=== PATIENT | female | born 1955 | race Caucasian/White ===

== ENCOUNTER 2020-09-05 15:57 | Outpatient (CLI) | payer MEDICARE, OTHER, SELFPAY ==
--- NOTE | ~2020-09-05 | US_ITS ---
US venous doppler LE RT DATE: 09/05/2020 16:28 INDICATION: Right lower leg pain TECHNIQUE: Real-time and color flow imaging and Doppler analysis of the veins of the right lower extr emity COMPARISON: 04/05 2011 mm tubular examination of the lower extremities FINDINGS: There is spontaneous and phasic flow and normal augmentation and color flow signal and norm al compression of the veins of the right lower extremity. Greater saphenous vein is patent. IMPRESSION: No evidence of deep venous thrombosis of right lower extremity Reviewed, dictated and finalized at [facility]. Reviewed, dictated and finalized at location [facility]. 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
== END 2020-09-05 15:58 | disposition home or self-care (01) ==
LOC: ANHIMG 16:04
PROVIDERS: PCP Physician Assistant; Visit Provider Family Medicine
DX: M79.661 Pain in right lower leg (principal)
CPT/HCPCS: 93971

== ENCOUNTER 2020-10-01 12:44 | Outpatient (CLI) | payer MEDICARE, OTHER, SELFPAY ==
--- NOTE | ~2020-10-01 | US_ITS ---
US renal BI 10/01/2020 13:28 Procedure: Realtime transabdominal ultrasound of the kidneys and bladder. Indication: Abnormality seen on the kidneys on recent outside MRI examination. Comparison: No prior studies for comparison. Findings: There is an irregular shaped hypoechoic mass measuring 2.3 x 2 x 1.8 cm and the left kidney . No hydronephrosis or renal stones. Right renal echotexture is normal without focal mass. The right kidney measures 8.5 cm and left kidney measures 11.5 cm. Bladder within normal limits. Impression: 1: Irregular shaped hypoechoic mass of the left kidney measuring 2.3 cm maximum dimension. This canno t be definitively characterized as a simple cyst. Recommend correlation with contrast-enhanced CT or MRI. Reviewed, dictated and finalized at location [facility]. Impression: 1: Irregular shaped hypoechoic mass of the left kidney measuring 2.3 cm maximum dimension. This cannot be definitively characterized as a simple cyst. Recomme nd correlation with contrast-enhanced CT or MRI.
== END 2020-10-01 12:45 | disposition home or self-care (01) ==
LOC: ANHIMG 12:48
PROVIDERS: PCP Physician Assistant; Visit Provider Family Medicine
DX: N28.1 Cyst of kidney, acquired (principal)
CPT/HCPCS: 76775

== ENCOUNTER 2020-10-30 12:43 | Inpatient (IN) | payer MEDICARE, OTHER, SELFPAY ==
--- NOTE | ~2020-10-30 | US_ITS ---
EXAMINATION: US venous doppler LE RT DATE: 10/30/2020 14:54 INDICATION: Right lower limb pain TECHNIQUE: Grayscale ultrasound images without and with compression and Doppler ultrasound images of the right lower extremity veins were obtained. COMPARISON: None. FINDINGS: The visualized portions of right common femoral vein, profunda (deep) femoral vein, femoral vein, pop liteal vein, peroneal trunk, posterior tibial veins, peroneal veins, gastrocnemius vein and greater s aphenous vein outflow are patent. IMPRESSION: 1. No deep venous thrombosis in the right lower limb. Reviewed, dictated and finalized at location A.
[2020-10-30 12:53] VITALS: BP 138/93; PULSE 91; RESP 18; TEMP 36.3; O2SAT 100
[2020-10-30 13:13] LABS: Basophils Absolute Auto 0.1 K/mm3 (0.0-0.1); Basophils Percent Auto 0.5 % (0.2-1.2); Eosinophils Absolute Auto 0.1 K/mm3 (0-0.3); Eosinophils Percent Auto 1.2 % (0-4.4); Hematocrit 47.7 % (37.0-47.0); Hemoglobin 16.2 g/dL (12.0-15.0); Immature Granulocyte Absolute 0.07 K/mm3 (0.00-0.031); Immature Granulocyte Percent A 0.6 % (0-0.5); Lymphocytes Absolute Auto 1.29 K/mm3 (0.9-3.2); Lymphocytes Percent Auto 11.8 % (18.3-44.2); Mean Corpuscular Hemoglobin 31.2 pg (26-34); Mean Corpuscular Volume 91.9 fl (80-100); Mean Platelet Volume 10.2 fl (7.4-10.4); Monocytes Percent Auto 9.1 % (2.6-8.5); Neutrophils Absolute Auto 8.4 K/mm3 (1.3-6.7); Neutrophils Percent Auto 76.8 % (45.5-73.1); Platelet Count Result 181 k/mm3 (150-375); Red Blood Count 5.19 M/mm3 (4.2-5.4); Red Cell Distribution Width 13.3 % (11.5-14.5); White Blood Count 10.9 K/mm3 (4.5-10.0)
[2020-10-30 13:34] LABS: Anion Gap 12 mmol/L (8-16); Blood Urea Nitrogen 28 mg/dL (7-17); Calcium 9.5 mg/dL (8.4-10.2); Carbon Dioxide 25 mmol/L (22-30); Chloride 98 mmol/L (98-107); Estimated CRCL calculation 53 ml/min; Estimated Glomerular Filt Rate 55; Glucose 96 mg/dL (65-105); Potassium 3.6 mmol/L (3.4-5.0); Sodium 135 mmol/L (137-145)
--- NOTE | 2020-10-30 14:15 | PC.NURSE ---
Worsening R inner calf cellulitis over last month, denies hx blood clots, had US last month for same (unremarkable). Denies trauma to RLE. BLE appear equal in size, redness and warmth to inner calf, white crusted area (currently no drainage)
--- NOTE | 2020-10-30 14:15 | ED.GENADULT ---
HPI - General Adult General Chief complaint: Skin/Abscess/Foreign Body Stated complaint: right leg cellulitis Time Seen by Provider: 10/30/20 14:01 Source: RN notes reviewed History of Present Illness HPI narrative: Patient presents emergency room from home for right leg cellulitis. Patient states she has been having recurrent cellulitis in her right lower extremity over the past several months has been on 3 courses of antibiotics with the most recent antibiotic being Levaquin. Patient states she has 1 dose left she states that the area has had increased redness over the past 2 days and is now all the way around her lower leg she denies any known trauma or injury she denies any fevers or chills chest pain shortness of breath or any other symptoms patient does have lupus and is on chronic steroids Related Data Home Medications Medication Instructions Recorded Confirmed amitriptyline 25 mg tablet 50 mg PO DAILY tablet 05/07/20 10/23/20 pregabalin 150 mg capsule 150 mg PO BID 05/07/20 10/23/20 cholecalciferol (vitamin D3) 125 125 mcg PO DAILY 09/05/20 10/23/20 mcg (5,000 unit) tablet Allergies Allergy/AdvReac Type Severity Reaction Status Date / Time cephalexin Allergy Unknown Vomiting Verified 10/30/20 12:56 metronidazole Allergy Unknown Unknown Verified 10/30/20 12:56 Penicillins Allergy Unknown Unknown Verified 10/30/20 12:56 Sulfa (Sulfonamide Allergy Unknown Unknown Verified 10/30/20 12:56 Antibiotics) dicloxacillin AdvReac Intermediate SOB Verified 10/30/20 12:56 sulfamethoxazole AdvReac Intermediate SOB Verified 10/30/20 12:56 trimethoprim AdvReac Intermediate SOB Verified 10/30/20 12:56 Review of Systems Review of Systems: Narrative: Gen.: Denies fevers or chills ENT: Denies congestion Respiratory: Denies shortness of breath or cough CV: Denies chest pain or palpitations GI: Denies abdominal pain nausea, emesis or diarrhea Musculoskeletal: Denies back pain or muscle pain Neuro: Denies numbness, tingling, weakness or focal weakness Skin: See HPI Except as documented, all other systems reviewed and negative PMFSH Past Medical History Medical History Cervical radiculopathy Hypertension Lumbar spinal stenosis Lupus Panniculitis with secondary chronic pain Right anterior knee pain (~12/2018) Vitamin D deficiency Surgical History Surgical History History of carpal tunnel release History of fusion of cervical spine (~2013) History of lumpectomy left breast History of rotator cuff surgery left side Family History Family History Father Hypertension Mother Family history of Parkinson's disease Family history of genetic disorder Social History Social History Smoking status: Never smoker Second hand tobacco smoke exposure: No Alcohol intake: never Substance use: never Substance use type: does not use Gender identity (if verbalized by the patient): Female Exam Narrative: Exam Narrative: APPEARANCE: No acute distress, nontoxic, resting in bed EYES: EOMI HEENT: Normocephalic, atraumatic, OMM RESPIRATORY: No respiratory distress Clear to auscultation bilaterally with no rhonchi wheezing or rales. CARDIOVASCULAR: Regular rate and rhythm without murmurs rubs or gallops. ABDOMINAL: Soft, nontender, nondistended, no rebound or guarding MUSCULOSKELETAl: Moves all extremities. No clubbing, cyanosis or edema. NEURO: Awake and alert. Following commands, speech normal, no focal deficits SKIN:: Warm, dry. Right lower extremity has circumferential erythema proximal to the ankle and up through the mid leg with some overlying crusting no drainage present no fluctuance no extension over the ankle or knee dorsalis pedis pulse present by Doppler ultrasound in room PSYCHIATRIC: N
[2020-10-30 14:45] LABS: Lactic Acid Reflex 1.4 mmol/L (0.7-2.1)
[2020-10-30 14:49] LABS: INR 0.9; Prothrombin Time 12.9 Seconds (11.1-14.7)
[2020-10-30 14:50] LABS: Partial Thromboplastin Time 26.4 SECONDS (22.3-36.8)
[2020-10-30] MEDS: ONDANSETRON INJ 4 MG/2 ML VIAL IV PUSH (15:33)
[2020-10-30 16:15] VITALS: BP 146/89; PULSE 96; RESP 20; O2SAT 100
[2020-10-30 16:40] VITALS: BMI 35.4
[2020-10-30 16:45] VITALS: BP 144/88; PULSE 89; RESP 20; TEMP 36.9; O2SAT 96
--- NOTE | 2020-10-30 17:15 | ADMGEN ---
This patient, January Calvin, was admitted to [facility] Surg Room 314-01 at 1640. Patient/family oriented to hospital policies and general routines including ID bracelet, bed and alarms, visiting hours, pain management, procedures, bathroom and other care routines, personal items, smoking policy, room service/diet, and visiting hours. Information on how to activate the Rapid Response Team has been discussed. Patient/Family are encouraged to report perceived risks to care and to ask questions if they do not understand what they are told or what they should do.
[2020-10-30] MEDS: METOCLOPRAMIDE HCL INJ 10 MG/2 ML VIAL IV PUSH (17:35)
[2020-10-30] MEDS: HYDROmorphone HCL INJ (*CRX) 1 MG/ML SYR 0.5 MG IV PUSH (17:37)
--- NOTE | 2020-10-30 19:20 | PM.IMHP ---
H&P: HPI History of Present Illness Date/Time: 10/30/20 19:20 patient who has a past history of having cellulitis her right leg. The patient also has lupus and is on prednisone. The patient came to the emergency room today to review her cellulitis to the right lower extremity. The patient stated that she has had 3 antibiotics outpatient. She said that she has had 2 rounds of Levaquin and cannot recall what her last antibiotic was prior to that. The patient has multiple antibiotic allergies. It looks like maybe the patient was on doxycycline at 1 time as well. 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 She recently had a lower extremity ultrasound which was negative for DVT. Any trauma or injury to that right lower extremity. The patient chronically takes oxycodone at home. She is requesting pain medication for the right lower extremity. The patient was started on vancomycin. She was also feeling nauseated the emergency room and she was given Zofran which lasted about 2 hours and was complaining of nausea gets okay for Reglan which appear to help. I also ordered Dilaudid for her since she had not gotten her routine pain medication. The patient was initially placed in observation but then it was changed status to inpatient status. On the date of service of 10/30/2020 Chief Complaint: Cellulitis right lower extremity Review of Systems Review of Systems: All systems reviewed & are unremarkable except as noted in HPI and below Constitutional: Constitutional: Reports as per HPI and Reports no additional constitutional complaints Eyes: Eyes: Reports as per HPI and Reports no additional eye complaints ENT: Reports system reviewed and no additional complaints, except as documented and Reports Normal hearing present Cardiovascular: Cardiovascular: Reports no additional cardiovascular complaints Respiratory: Respiratory: Reports no additional respiratory complaints and Reports no additional respiratory complaints Gastrointestinal: Gastrointestinal: Reports as per HPI and Reports no additional gastrointestinal complaints Musculoskeletal: Musculoskeletal: Reports no additional musculoskeletal complaints Integumentary/Breasts: Skin/Breast: Reports system reviewed and no additional complaints, except as docu and Reports as per HPI Neurologic: Reports system reviewed and no additional complaints, except as documented, Reports as per HPI and Reports Normal hearing present Psychiatric: Psychiatric: Reports no additional psychiatric complaints and Reports as per HPI Endocrine: Endocrine: Reports no additional endocrine complaints Hematologic/Lymphatic: Hematologic/Lymphatic: Reports no additional hematologic/lymphatic complaints Allergic/Immunologic: Allergic/Immunologic: Reports no additional allergic/immunologic complaints [facility] Past Medical History Medical History Cervical radiculopathy Hypertension Lumbar spinal stenosis Lupus Panniculitis with secondary chronic pain Right anterior knee pain (~12/2018) Vitamin D deficiency Surgical History Surgical History (Updated 10/30/20 @ 19:27 by Katia Mason NP) History of bilateral knee replacement History of carpal tunnel release History of fusion of cervical spine (~2013) History of lumpectomy left breast History of rotator cuff surgery left side Family History Family History (Updated 10/30/20 @ 19:27 by Katia Mason NP) Father Hypertension Acute myocardial infarction Mother Family history of Parkinson's disease Family history of genetic disorder Social History Social History (Updated 10/30/20 @ 19:28 by Katia Mason NP) Social History: The patient recently lost her due to COVID and is now . She has no children. She desires to be a full code and does not have a durable power estate planning attorney for healthcare. 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
[2020-10-30 20:00] VITALS: PULSE 89; RESP 20; O2SAT 96
[2020-10-30] MEDS: PANTOPRAZOLE 40 MG TABLET PO (21:00)
[2020-10-30] MEDS: AMITRIPTYLINE HCL 25 MG TABLET 50 MG PO (21:00)
[2020-10-30] MEDS: PREGABALIN (*CRX) 75 MG CAPSULE 150 MG PO (21:00)
[2020-10-30] MEDS: oxyCODONE/ACETAMINOPHEN (*CRX) 5-325 MG TABLET 1 TABLET PO (21:01)
[2020-10-30 21:17] VITALS: O2SAT 96
[2020-10-30 21:51] VITALS: BP 122/75; PULSE 99; RESP 18; TEMP 36.4; O2SAT 96
[2020-10-30] MEDS: ZOLPIDEM TARTRATE (*CRX) 5 MG TABLET 10 MG PO (23:35)
--- NOTE | 2020-10-31 | ECHO_ITS ---
Patient Info Name: January Calvin Age: 65 years : 1955 Gender: Female Ht: 65 in Wt: 212 lbs BSA: 2.14 m2 HR: 92 bpm BP: 143 / 77 mmHg Technical Quality: Fair Exam Date: 10/31/2020 11:31 AM Exam Location: [facility] Patient Status: Inpatient Admit Date: 10/30/2020 Staff Ordering Physician: Katia Mason NP Receiving Inspector: Citlaly Velarde RDCS Attending Provider: Soni Tao PA-C Referring Physician: Isabella KIM; Exam Type: CA echo doppler color flow Study Info Indications R01.1 - Cardiac murmur, unspecified Complete two-dimensional, color flow and Doppler transthoracic echocardiogram is performed. Summary 1. Complete two-dimensional, color flow and Doppler transthoracic echocardiogram is performed. 2. Left ventricular chamber dimension is normal. 3. Left ventricular systolic function is normal, estimated at 55-60%. 4. The left ventricular diastolic function is grade I diastolic dysfunction. 5. Ventricular septum is sigmoid shaped. No LVOT obstruction. 6. E/e' 10 is mildly elevated. 7. Left atrial chamber dimension is mildly enlarged. 8. There is severe aortic valve sclerosis. 9. There is mild to moderate aortic valve stenosis with a peak velocity of 312 cm/s, mean gradient of 19 mmHg, and aortic valve area of 1.5 cm2. 10. There is trace aortic valve regurgitation. 11. There is trace tricuspid valve regurgitation. 12. No pulmonary hypertension, estimated pulmonary arterial systolic pressure is 38 mmHg. Left Ventricle Ventricular septum is sigmoid shaped. No LVOT obstruction. E/e' 10 is mildly elevated. Left ventricular chamber dimension is normal. Left ventricular systolic function is normal, estimated at 55-60%. The left ventricular diastolic function is grade I diastolic dysfunction. Right Ventricle Right ventricular chamber dimension is normal. Right ventricular systolic function is normal. Left Atria Left atrial chamber dimension is mildly enlarged. Right Atria Right atrial chamber dimension is normal. Aortic Valve The aortic valve is trileaflet. There is severe aortic valve sclerosis. There is mild to moderate aortic valve stenosis with a peak velocity of 312 cm/s, mean gradient of 19 mmHg, and aortic valve area of 1.5 cm2. There is trace aortic valve regurgitation. Pulmonic Valve There is no pulmonic regurgitation. Mitral Valve There is no mitral valve stenosis. There is no mitral valve regurgitation. Tricuspid Valve There is trace tricuspid valve regurgitation. No pulmonary hypertension, estimated pulmonary arterial systolic pressure is 38 mmHg. Pericardium/Pleural There is no pericardial effusion. Inferior Vena Cava Normal inferior vena cava with >50% collapse upon inspiration consistent with normal right atrial pressure, 5 mmHg. Aorta The aortic root size at the sinus of Valsalva is normal. Left Ventricular Outflow Tract Name Value Normal LVOT 2D LVOT Diameter 2.0 cm LVOT Doppler LVOT Peak Gradient 8 mmHg LVOT Mean Gradient 4 mmHg LVOT VTI 27 cm
[2020-10-31 05:30] VITALS: BP 143/77; PULSE 88; RESP 18; TEMP 36.8; O2SAT 91
[2020-10-31 05:56] LABS: Basophils Absolute Auto 0.1 K/mm3 (0.0-0.1); Basophils Percent Auto 0.6 % (0.2-1.2); Eosinophils Absolute Auto 0.1 K/mm3 (0-0.3); Eosinophils Percent Auto 1.4 % (0-4.4); Hematocrit 43.7 % (37.0-47.0); Hemoglobin 14.6 g/dL (12.0-15.0); Immature Granulocyte Absolute 0.05 K/mm3 (0.00-0.031); Immature Granulocyte Percent A 0.6 % (0-0.5); Lymphocytes Absolute Auto 0.94 K/mm3 (0.9-3.2); Lymphocytes Percent Auto 11.7 % (18.3-44.2); Mean Corpuscular HGB Conc 33.4 g/dl (32-36); Mean Corpuscular Hemoglobin 30.8 pg (26-34); Mean Corpuscular Volume 92.2 fl (80-100); Mean Platelet Volume 9.5 fl (7.4-10.4); Monocytes Absolute Auto 0.9 K/mm3 (0.1-0.6); Neutrophils Percent Auto 74.7 % (45.5-73.1); Platelet Count Result 195 k/mm3 (150-375); Red Blood Count 4.74 M/mm3 (4.2-5.4); Red Cell Distribution Width 13.4 % (11.5-14.5); White Blood Count 8.1 K/mm3 (4.5-10.0)
[2020-10-31 06:13] LABS: Anion Gap 8 mmol/L (8-16); Blood Urea Nitrogen 26 mg/dL (7-17); Calcium 9.3 mg/dL (8.4-10.2); Carbon Dioxide 28 mmol/L (22-30); Chloride 99 mmol/L (98-107); Estimated CRCL calculation 47 ml/min; Estimated Glomerular Filt Rate 45; Glucose 99 mg/dL (65-105); Potassium 3.2 mmol/L (3.4-5.0); Sodium 135 mmol/L (137-145)
[2020-10-31] MEDS: predniSONE 5 MG TABLET PO ×3 (09:35→16:13)
[2020-10-31] MEDS: TRIAMTERENE 37.5 MG/HCTZ 25 MG (MAXZIDE) TABLET 1 TAB PO (09:36)
[2020-10-31] MEDS: PANTOPRAZOLE 40 MG TABLET PO (09:36)
[2020-10-31] MEDS: oxyCODONE/ACETAMINOPHEN (*CRX) 5-325 MG TABLET 1 TABLET PO (09:42)
[2020-10-31] MEDS: PREGABALIN (*CRX) 75 MG CAPSULE 150 MG PO ×2 (10:30→19:56)
[2020-10-31 11:44] VITALS: BMI 35.4
--- NOTE | 2020-10-31 12:17 | PCNSR ---
On 10/31/20, the student, Abby Carpenter, provided care and completed [facility] documentation on this patient. I have reviewed the student's documentation and agree with the findings.
--- NOTE | 2020-10-31 13:45 | PM.IMPN ---
Progress Note: A&P Assessment and Plan (1) Cellulitis of leg, right: Code(s): L03.115 - Cellulitis of right lower limb Status: Acute Assessment and Plan: Without improvement from outpatient therapy with oral antibiotics. Was started on IV vancomycin. Infectious disease changed to IV rocephin and recommends IV ceftriaxone 1/7 days. Venous US negative for DVT. (2) Renal mass: Code(s): N28.89 - Other specified disorders of kidney and ureter Status: Acute Assessment and Plan: Getting outpatient workup with further imaging per PCP. (3) Heart murmur: Code(s): R01.1 - Cardiac murmur, unspecified Status: Chronic Assessment and Plan: Echocardiogram shows mild to moderate aortic stenosis; normal systolic function EF 55-60%. She would like to see Dr Ortega at [facility] who took care of her previously. This can be arranged outpatient. (4) Hypertension: Code(s): I10 - Essential (primary) hypertension Status: Chronic Assessment and Plan: BP stable maintained on home triamterene-HCTZ. Monitor BP and adjust treatment as needed. (5) Lupus: Code(s): M32.9 - Systemic lupus erythematosus, unspecified Status: Chronic Assessment and Plan: Patient is on low-dose prednisone and sees a public health technician elsewhere. (6) Cervical radiculopathy: Code(s): M54.12 - Radiculopathy, cervical region Status: Chronic Assessment and Plan: Continue home Lyrica and narcotic pain regimen. Subjective Date/time seen: 10/31/20 13:00 Interval history: Ms. Calvin is a pleasant 65yo F admitted for right lower extremity cellulitis failed outpatient treatment. She notes right leg pain and erythema, not much improved since she came in. She has had nausea and vomiting which have improved some. No chest pain or shortness of breath. Review of Systems Review of Systems: All systems reviewed & are unremarkable except as noted in HPI and below Exam Narrative: Exam Narrative: General: Female resting comfortably sitting up in bed in no acute distress. HEENT: Normocephalic, EOMI, oral mucosa moist. Cardiovascular: Rate and rhythm are regular. Systolic murmur heard over left sternal border. Respiratory: Lungs clear to auscultation bilaterally. Respirations even and non-labored. Tolerating room air. Abdomen: Soft, non-tender, non-distended, bowel sounds present. Extremities: Peripheral pulses intact. Significant bright erythema to right lower leg from above the ankle to below the knee, hot to touch, some dry crusting to R medial calf pt reports was previously weeping, R pedal edema. LLE with chronic color changes to skin but no sign of infection. Neuro: No focal neurological deficits. Speech is clear. Objective Data Vital Signs Vital Signs: Last Vital Signs Temp 98.2 F 10/31/20 14:00 Pulse 95 10/31/20 14:00 Resp 18 10/31/20 14:00 BP 132/87 10/31/20 14:00 Pulse Ox 95 10/31/20 16:18 Intake/Output Intake/Output: Intake & Output 10/28/20 10/29/20 10/30/20 10/31/20 23:59 23:59 23:59 23:59 Intake Total 360 370 Output Total 300 Balance 360 70 Meds/Results Medications: Active Medications Generic Name Dose Route Start Last Admin Trade Name Freq PRN Reason Stop Dose Admin Amitriptyline HCl 50 mg 10/30/20 21:00 10/30/20 21:00 Amitriptyline Hcl 25 Mg Tablet PO 50 mg HS SAM Administration Enoxaparin Sodium 40 mg 10/31/20 09:00 10/31/20 10:49 Enoxaparin 40 Mg/0.4 Ml Syringe SUB-Q Not Given DAILY SAM Vancomycin HCl 1,500 mg in 500 mls @ 333.333 mls/hr 10/31/20 16:00 Vancomycin 1,500 Mg/D5w 500 Ml IVPB Q24H SAM Oxycodone/A
[2020-10-31 14:00] VITALS: BP 132/87; PULSE 95; RESP 18; TEMP 36.8; O2SAT 94
--- NOTE | 2020-10-31 16:04 | WPDINFPN2 ---
Progress Note: A&P Assessment and Plan (1) Cellulitis of leg, right: Code(s): L03.115 - Cellulitis of right lower limb Status: Acute Assessment and Plan: 1. R leg cellulitis 2. Cephalexin intolerance with N/V but not anaphylaxis, and she states that she is NOT allergic to penicillins REC Ctx # 1 / 7 days. Subjective Date/time seen: 10/31/20 16:04 Objective Data Vital Signs Vital Signs: Vital Signs - 24 hr 10/30/20 16:15 10/30/20 16:45 10/30/20 20:00 Temperature 36.9 C Pulse Rate 96 89 89 Respiratory Rate 20 20 20 Blood Pressure 146/89 H 144/88 H Pulse Oximetry 100 96 96 10/30/20 21:17 10/30/20 21:51 10/31/20 05:30 Temperature 36.4 C L 36.8 C Pulse Rate 99 88 Respiratory Rate 18 18 Blood Pressure 122/75 143/77 H Pulse Oximetry 96 96 91 10/31/20 14:00 Temperature 36.8 C Pulse Rate 95 Respiratory Rate 18 Blood Pressure 132/87 Pulse Oximetry 94 Intake/Output Intake/Output: Intake & Output 10/28/20 10/29/20 10/30/20 10/31/20 23:59 23:59 23:59 23:59 Intake Total 360 850 Output Total 300 Balance 360 550 Meds/Results Medications: Active Medications Generic Name Dose Route Start Last Admin Trade Name Freq PRN Reason Stop Dose Admin Amitriptyline HCl 50 mg 10/30/20 21:00 10/30/20 21:00 Amitriptyline Hcl 25 Mg Tablet PO 50 mg HS SAM Administration Enoxaparin Sodium 40 mg 10/31/20 09:00 10/31/20 10:49 Enoxaparin 40 Mg/0.4 Ml Syringe SUB-Q Not Given DAILY SAM Ceftriaxone Sodium/Dextrose 1 gm in 50 mls @ 100 mls/hr 10/31/20 16:05 Rocephin 1 Gm/D5w 50 Ml IVPB Q24H SAM Oxycodone/Acetaminophen 1 tablet 10/30/20 19:07 10/31/20 09:42 Oxycodone/Acetaminophen (*Crx) 5-325 Mg Tablet PO 1 tablet QID PRN Administration pain Pantoprazole Sodium 40 mg 10/30/20 20:50 10/31/20 09:36 Pantoprazole 40 Mg Tablet PO 40 mg QAM SAM Administration Prednisone 5 mg 10/30/20 19:30 10/31/20 13:21 Prednisone 5 Mg Tablet PO 5 mg TIDWM SAM Administration Pregabalin 150 mg 10/30/20 21:00 10/31/20 10:30 Pregabalin (*Crx) 75 Mg Capsule PO 150 mg Q12HR SAM Administration Tizanidine HCl 8 mg 10/30/20 19:07 Tizanidine Hcl 4 Mg Tablet PO HS PRN muscle spasticity Triamterene/Hydrochlorothiazide 1 tab 10/31/20 09:00 10/31/20 09:36 Triamterene 37.5 Mg/Hctz 25 Mg (Maxzide) Tablet PO 1 tab QAM SAM Administration Zolpidem Tartrate 10 mg 10/30/20 21:00 10/30/20 23:35 Zolpidem Tartrate (*Crx) 5 Mg Tablet PO 10 mg HS SAM Administration Radiology Results: ITS Impressions Venous Doppler Study 10/30/20 14:56 IMPRESSION: 1. No deep venous thrombosis in the right lower limb. Labs Labs: Laboratory Results - last 24 hr 10/31/20 10/31/20 05:40 05:40 WBC 8.1 RBC 4.74 Hgb 14.6 Hct 43.7 MCV 92.2 MCH 30.8 MCHC 33.4 RDW 13.4 Plt Count 195 MPV 9.5 Immature Gran % (Auto) 0.6 H Neut % (Auto) 74.7 H Lymph % (Auto) 11.7 L [place] % (Auto) 11.0 H Eos % (Auto) 1.4 Baso % (Auto) 0.6 Lymph # (Auto) 0.94 [place] # (Auto) 0.9 H Eos # (Auto) 0.1 Baso # (Auto) 0.1 Abs Immat Gran (auto) 0.05 H Absolute Neuts (auto) 6.0 Absolute Nucleated RBC 0.0 Nucleated RBC % 0.0 Sodium 135 L Potassium 3.2 L Chloride 99 Carbon Dioxide 28 Anion Gap 8 BUN 26 H Creatinine 1.20 H Estim Creat Clear Calc 47 Estimated GFR 45 L Glucose 99 Calcium 9.3
[2020-10-31] MEDS: HYDROcodone/acetaminophen (*CRX) 7.5-325 MG TABLET 1 TAB PO ×2 (16:17→22:28)
[2020-10-31 16:18] VITALS: O2SAT 95
[2020-10-31] MEDS: ACETAMINOPHEN 325 MG TABLET 650 MG PO (19:57)
[2020-10-31 22:00] VITALS: BP 132/77; PULSE 87; RESP 18; TEMP 36.3; O2SAT 96
[2020-10-31] MEDS: AMITRIPTYLINE HCL 25 MG TABLET 50 MG PO (22:33)
[2020-10-31] MEDS: TIZANIDINE HCL 4 MG TABLET 8 MG PO (22:34)
--- NOTE | 2020-10-31 23:09 | CONS_ITS ---
DATE OF CONSULTATION: 10/31/2020 REASON FOR CONSULTATION: Cellulitis of the right leg. HISTORY OF PRESENT ILLNESS: A 65-year-old female, who reports a history of lupus and apparently biopsy-proven panniculitis of the right leg due to the same illness. For the last 2 months by her report, she has had redness and pain in the right lower extremity that responded only partially to doxycycline and trimethoprim sulfa at various times, also levofloxacin. She presented to the hospital with increasing pain to the right leg, there was redness and spreading erythema, here she has been given vancomycin and consultation requested. She knows of no trauma. She has had a right total knee arthroplasty done approximately 2-3 years ago, also joint replacement on the left knee as well around the same time. The knee has not been symptomatic for her. She has had 2 episodes in the last several years of edema in the right leg for which she uses prednisone increased dose over and above her usual 15 mg once daily. This has helped in the past. She has not taken any additional prednisone in recent months and no events here in the hospital. PRESENT MEDICATIONS: List reviewed. Prednisone is ongoing 15 mg once daily. HABITS: No tobacco. No alcohol to excess. ALLERGIES: CEPHALEXIN CAUSED SEVERAL HOURS OF MARKED NAUSEA AND VOMITING. SHE DENIES TO ME ANY PAST ALLERGY TO PENICILLIN. SHE ALSO CARRIES ALLERGY LISTING TO SULFA AND METRONIDAZOLE WITH THE FORMER CAUSING SHORTNESS OF BREATH. PAST MEDICAL HISTORY: In addition to the above, cervical spine fusion in 2013, left breast lumpectomy, rotator cuff surgery, lumbar spine stenosis, hypertension. Outcome of her lumpectomy not available. FAMILY HISTORY: Hypertension and Parkinson. SOCIAL HISTORY: Her recently of coronavirus infection. No children. Retired. Lives locally. She is scheduled to see a new clinical documentation specialist as her previous one has retired. REVIEW OF SYSTEMS: A 14-point review otherwise negative. PHYSICAL EXAMINATION: GENERAL: Middle-aged female, appears older than her actual age, in no acute distress. VITAL SIGNS: Afebrile since arrival. 95, 18, 132/87, 95% on room air. SKIN: Warm and dry. No generalized rashes. EENT: Oropharynx, oral mucosa normal. Conjunctivae are clear. NECK: No masses or thyromegaly. LUNGS: Clear to auscultation and percussion. CARDIAC: Regular rate and rhythm. No murmur, gallop, or rub. Pulses are 1+ and equal. ABDOMEN: Soft, nontender. No organomegaly. No masses. EXTREMITIES: She has a partial-thickness crusting and slough, medial right mid frost area. She has erythema, tenderness, and warmth in the same distribution as well as circumferentially. The edema is mild and does not extend into the foot. MUSCULOSKELETAL: No joint inflammation evident on right knee nor the ankle. LABORATORY DATA: Blood cultures, no growth after short incubation. Her white count was 10.9, now 8.1, hemoglobin 14.6, platelets are 195. Differential is normal. She has mild hyponatremia. BUN 26, creatinine 1.2, up from 1.0. Liver function tests repeated were normal 4 weeks ago. Hemoglobin A1c 4 weeks ago, 5.7%. Urinalysis 10/10/2020, normal. RADIOLOGY: Venous Doppler showed no DVT. She also has had an echocardiogram which showed no evidence of infection, but severe aortic valve sclerosis. ASSESSMENT: 1. Cellulitis of the right leg, with mild leukocytosis is now resolved. Deep venous thrombosis is unlikely. Other causes of her present illness are unlikely. It is likely streptococcal in nature. 2. Lupus and panniculitis, resulting in an immunocompromise and also now immunosuppressed with prednisone 15 mg daily. 3. Previous total knee arthroplasty without longstanding right leg edema.
[2020-10-31] MEDS: ZOLPIDEM TARTRATE (*CRX) 5 MG TABLET 10 MG PO (23:56)
[2020-11-01 06:00] VITALS: BP 130/79; PULSE 67; RESP 18; TEMP 36.4; O2SAT 90
[2020-11-01 06:20] LABS: Anion Gap 5 mmol/L (8-16); Blood Urea Nitrogen 31 mg/dL (7-17); Calcium 8.7 mg/dL (8.4-10.2); Carbon Dioxide 30 mmol/L (22-30); Chloride 101 mmol/L (98-107); Estimated CRCL calculation 62 ml/min; Estimated Glomerular Filt Rate > 60; Glucose 127 mg/dL (65-105); Magnesium 2.1 mg/dL (1.6-2.3); Potassium 3.5 mmol/L (3.4-5.0); Sodium 136 mmol/L (137-145)
[2020-11-01] MEDS: predniSONE 5 MG TABLET PO ×3 (08:21→16:56)
[2020-11-01] MEDS: PREGABALIN (*CRX) 75 MG CAPSULE 150 MG PO ×2 (08:22→22:34)
[2020-11-01] MEDS: PANTOPRAZOLE 40 MG TABLET PO (08:22)
[2020-11-01] MEDS: TRIAMTERENE 37.5 MG/HCTZ 25 MG (MAXZIDE) TABLET 1 TAB PO (08:22)
[2020-11-01] MEDS: HYDROcodone/acetaminophen (*CRX) 7.5-325 MG TABLET 1 TAB PO ×3 (11:47→23:48)
--- NOTE | 2020-11-01 12:55 | PM.IMPN ---
Progress Note: A&P Assessment and Plan (1) Cellulitis of leg, right: Code(s): L03.115 - Cellulitis of right lower limb Status: Acute Assessment and Plan: Some improvement today. Appreciate Dr Sears's recommendations - continue IV ceftriaxone (day 2). Noted anticipation for possible 7 days IV abx and will monitor for clinical improvement over the next couple days. Blood cultures are pending with no growth to date. Venous US negative for DVT. (2) Renal mass: Code(s): N28.89 - Other specified disorders of kidney and ureter Status: Acute Assessment and Plan: Getting outpatient workup with further imaging per PCP. (3) Heart murmur: Code(s): R01.1 - Cardiac murmur, unspecified Status: Chronic Assessment and Plan: Echocardiogram shows mild to moderate aortic stenosis; normal systolic function EF 55-60%. Discussed with patient. She would like to see Dr Ortega at [facility] who took care of her previously. This can be arranged outpatient. (4) Hypertension: Code(s): I10 - Essential (primary) hypertension Status: Chronic Assessment and Plan: BP stable, last 130/79, maintained on home triamterene-HCTZ. Monitor BP and adjust treatment as needed. (5) Lupus: Code(s): M32.9 - Systemic lupus erythematosus, unspecified Status: Chronic Assessment and Plan: Patient is on low-dose prednisone and sees a visual merchandising manager elsewhere. (6) Cervical radiculopathy: Code(s): M54.12 - Radiculopathy, cervical region Status: Chronic Assessment and Plan: Continue home Lyrica and narcotic pain regimen. Subjective Date/time seen: 11/01/20 12:20 Interval history: Ms. Calvin is a pleasant 65yo F admitted for right lower extremity cellulitis. She notes right leg pain and erythema have improved some today. Overall she is feeling a little better. She slept well last night and is having the stir gardner for lunch today, her favorite. Nausea and vomiting resolved. No chest pain or shortness of breath. Review of Systems Review of Systems: All systems reviewed & are unremarkable except as noted in HPI and below Exam Narrative: Exam Narrative: General: Female resting comfortably sitting up in bed eating lunch in no acute distress. In good spirits. HEENT: Normocephalic, EOMI, oral mucosa moist. Cardiovascular: Rate and rhythm are regular. Systolic murmur heard over left sternal border. Respiratory: Lungs clear to auscultation bilaterally. Respirations even and non-labored. Tolerating room air. Abdomen: Soft, non-tender, non-distended, bowel sounds present. Extremities: Peripheral pulses intact. Erythema to right lower leg from above the ankle to below the knee, warm to touch, some dry crusting to R medial calf pt reports was previously weeping, R pedal edema - overall improved compared to yesterday. LLE with chronic color changes to skin but no sign of infection. Neuro: No focal neurological deficits. Speech is clear. Objective Data Vital Signs Vital Signs: Last Vital Signs Temp 97.6 F 11/01/20 06:00 Pulse 67 11/01/20 06:00 Resp 18 11/01/20 06:00 BP 130/79 11/01/20 06:00 Pulse Ox 90 11/01/20 06:00 Intake/Output Intake/Output: Intake & Output 10/29/20 10/30/20 10/31/20 11/01/20 23:59 23:59 23:59 23:59 Intake Total 360 0550 920 Output Total 1250 400 Balance 360 1070 520 Meds/Results Medications: Active Medications Generic Name Dose Route Start Last Admin Trade Name Freq PRN Reason Stop Dose Admin Acetaminophen 650 mg 10/31/20 16:07 10/31/20 19:57 Acetaminophen 325 Mg Tablet PO 650 mg Q4H PRN Administration Pain Rated 5 or Les
[2020-11-01 14:00] VITALS: BP 128/67; PULSE 84; RESP 16; TEMP 36.9; O2SAT 98
[2020-11-01 21:49] VITALS: BP 129/77; PULSE 81; RESP 18; TEMP 35.9; O2SAT 92
[2020-11-01] MEDS: AMITRIPTYLINE HCL 25 MG TABLET 50 MG PO (22:30)
[2020-11-01] MEDS: ACETAMINOPHEN 325 MG TABLET 650 MG PO (22:33)
[2020-11-01] MEDS: ZOLPIDEM TARTRATE (*CRX) 5 MG TABLET 10 MG PO (23:48)
[2020-11-02 06:00] VITALS: BP 153/88; PULSE 80; RESP 18; TEMP 36.1; O2SAT 97
[2020-11-02] MEDS: HYDROcodone/acetaminophen (*CRX) 7.5-325 MG TABLET 1 TAB PO ×3 (06:13→19:05)
[2020-11-02 06:31] LABS: Potassium 3.3 mmol/L (3.4-5.0)
[2020-11-02 06:38] LABS: Anion Gap 4 mmol/L (8-16); Blood Urea Nitrogen 26 mg/dL (7-17); Calcium 8.9 mg/dL (8.4-10.2); Carbon Dioxide 32 mmol/L (22-30); Chloride 101 mmol/L (98-107); Estimated CRCL calculation 69 ml/min; Estimated Glomerular Filt Rate > 60; Glucose 91 mg/dL (65-105); Sodium 137 mmol/L (137-145)
[2020-11-02] MEDS: PANTOPRAZOLE 40 MG TABLET PO (08:41)
[2020-11-02] MEDS: predniSONE 5 MG TABLET PO ×3 (08:41→17:55)
[2020-11-02] MEDS: TRIAMTERENE 37.5 MG/HCTZ 25 MG (MAXZIDE) TABLET 1 TAB PO (08:42)
[2020-11-02] MEDS: PREGABALIN (*CRX) 75 MG CAPSULE 150 MG PO ×2 (08:42→20:27)
--- NOTE | 2020-11-02 11:36 | PM.IMPN ---
Progress Note: A&P Assessment and Plan (1) Cellulitis of leg, right: Code(s): L03.115 - Cellulitis of right lower limb Status: Acute Assessment and Plan: Improving. Appreciate Dr Sears's recommendations - continue IV ceftriaxone (day 3). Noted anticipation for possible 7 days IV abx and will monitor for clinical improvement over the next couple days. Blood cultures are pending with no growth to date. Venous US negative for DVT. (2) Renal mass: Code(s): N28.89 - Other specified disorders of kidney and ureter Status: Acute Assessment and Plan: Getting outpatient workup with further imaging per PCP. (3) Heart murmur: Code(s): R01.1 - Cardiac murmur, unspecified Status: Chronic Assessment and Plan: Echocardiogram shows mild to moderate aortic stenosis; normal systolic function EF 55-60%. Discussed with patient. She would like to see Dr Ortega at [facility] who took care of her previously. This can be arranged outpatient. (4) Hypertension: Code(s): I10 - Essential (primary) hypertension Status: Chronic Assessment and Plan: BPs reviewed, slightly elevated this AM may be secondary to pain. Maintained on home triamterene-HCTZ. Monitor BP and adjust treatment as needed. (5) Lupus: Code(s): M32.9 - Systemic lupus erythematosus, unspecified Status: Chronic Assessment and Plan: Patient is on low-dose prednisone and sees a senior enterprise architect elsewhere. (6) Cervical radiculopathy: Code(s): M54.12 - Radiculopathy, cervical region Status: Chronic Assessment and Plan: Continue home Lyrica and narcotic pain regimen. Subjective Date/time seen: 11/02/20 11:15 Interval history: Ms. Calvin is a pleasant 65yo F admitted for right lower extremity cellulitis. R leg erythema continues to improve this weekend. She is still having some moderate pain to right leg especially with walking but she is happy with the improvement. She didn't sleep much last night but otherwise offers no complaints. No chest pain, shortness of breath, nausea, or vomiting. Tolerating meals. Review of Systems Review of Systems: All systems reviewed & are unremarkable except as noted in HPI and below Exam Narrative: Exam Narrative: General: Female resting comfortably sitting up in bed eating lunch in no acute distress. In good spirits. HEENT: Normocephalic, EOMI, oral mucosa moist. Cardiovascular: Rate and rhythm are regular. Systolic murmur heard over left sternal border. Respiratory: Lungs clear to auscultation bilaterally. Respirations even and non-labored. Tolerating room air. Abdomen: Soft, non-tender, non-distended, bowel sounds present. Extremities: Peripheral pulses intact. Erythema to right lower leg from above the ankle to below the knee, warm to touch, some dry crusting to R medial calf pt reports was previously weeping, R pedal edema - overall improving. LLE with chronic color changes to skin but no sign of infection. Neuro: No focal neurological deficits. Speech is clear. Objective Data Vital Signs Vital Signs: Last Vital Signs Temp 96.9 F L 11/02/20 06:00 Pulse 80 11/02/20 06:00 Resp 18 11/02/20 06:00 BP 153/88 H 11/02/20 06:00 Pulse Ox 97 11/02/20 06:00 Intake/Output Intake/Output: Intake & Output 10/30/20 10/31/20 11/01/20 11/02/20 23:59 23:59 23:59 23:59 Intake Total 360 2320 1780 470 Output Total 1250 1400 1500 Balance 360 1070 380 1030 Meds/Results Medications: Active Medications Generic Name Dose Route Start Last Admin Trade Name Freq PRN Reason Stop Dose Admin Acetaminophen 650 mg 10/31/20 16:07 11/01/20 22:33 Acetami
[2020-11-02 14:00] VITALS: BP 143/78; PULSE 92; RESP 20; TEMP 36.6; O2SAT 98
[2020-11-02 22:00] VITALS: BP 139/78; PULSE 83; RESP 16; TEMP 36.6; O2SAT 97
[2020-11-03] MEDS: AMITRIPTYLINE HCL 25 MG TABLET 50 MG PO ×2 (00:06→23:08)
[2020-11-03] MEDS: ZOLPIDEM TARTRATE (*CRX) 5 MG TABLET 10 MG PO ×2 (00:07→23:09)
[2020-11-03] MEDS: HYDROcodone/acetaminophen (*CRX) 7.5-325 MG TABLET 1 TAB PO ×4 (01:19→20:38)
[2020-11-03 06:00] VITALS: BP 152/82; PULSE 69; RESP 20; TEMP 36.6; O2SAT 96
[2020-11-03 06:18] LABS: Basophils Absolute Auto 0.1 K/mm3 (0.0-0.1); Basophils Percent Auto 0.6 % (0.2-1.2); Eosinophils Absolute Auto 0.1 K/mm3 (0-0.3); Hematocrit 42.4 % (37.0-47.0); Hemoglobin 14.2 g/dL (12.0-15.0); Immature Granulocyte Absolute 0.07 K/mm3 (0.00-0.031); Immature Granulocyte Percent A 0.7 % (0-0.5); Lymphocytes Absolute Auto 1.24 K/mm3 (0.9-3.2); Lymphocytes Percent Auto 12.7 % (18.3-44.2); Mean Corpuscular HGB Conc 33.5 g/dl (32-36); Mean Corpuscular Hemoglobin 30.7 pg (26-34); Mean Corpuscular Volume 91.8 fl (80-100); Mean Platelet Volume 9.7 fl (7.4-10.4); Monocytes Absolute Auto 0.6 K/mm3 (0.1-0.6); Monocytes Percent Auto 6.3 % (2.6-8.5); Neutrophils Absolute Auto 7.7 K/mm3 (1.3-6.7); Neutrophils Percent Auto 78.7 % (45.5-73.1); Platelet Count Result 219 k/mm3 (150-375); Red Blood Count 4.62 M/mm3 (4.2-5.4); White Blood Count 9.8 K/mm3 (4.5-10.0)
[2020-11-03 06:29] LABS: Anion Gap 4 mmol/L (8-16); Blood Urea Nitrogen 30 mg/dL (7-17); Carbon Dioxide 31 mmol/L (22-30); Chloride 102 mmol/L (98-107); Estimated CRCL calculation 69 ml/min; Estimated Glomerular Filt Rate > 60; Glucose 90 mg/dL (65-105); Potassium 3.8 mmol/L (3.4-5.0); Sodium 137 mmol/L (137-145)
[2020-11-03] MEDS: PANTOPRAZOLE 40 MG TABLET PO (08:00)
[2020-11-03] MEDS: predniSONE 5 MG TABLET PO ×3 (08:00→16:13)
[2020-11-03] MEDS: PREGABALIN (*CRX) 75 MG CAPSULE 150 MG PO ×2 (08:01→20:26)
[2020-11-03] MEDS: TRIAMTERENE 37.5 MG/HCTZ 25 MG (MAXZIDE) TABLET 1 TAB PO (08:02)
--- NOTE | 2020-11-03 11:16 | PM.IMPN ---
Progress Note: A&P Assessment and Plan (1) Cellulitis of leg, right: Code(s): L03.115 - Cellulitis of right lower limb Status: Acute Assessment and Plan: Improving. Failed 3 rounds oral abx outpatient prior to arrival; multiple abx allergies. Appreciate Dr Sears's recommendations - continue IV ceftriaxone (day 4). Noted anticipation for possible 7 days IV abx and will monitor for clinical improvement over the next couple days. Blood cultures are pending with no growth to date. R leg venous US negative for DVT. (2) Renal mass: Code(s): N28.89 - Other specified disorders of kidney and ureter Status: Acute Assessment and Plan: Getting outpatient workup with further imaging per PCP. (3) Heart murmur: Code(s): R01.1 - Cardiac murmur, unspecified Status: Chronic Assessment and Plan: Echocardiogram shows mild to moderate aortic stenosis; normal systolic function EF 55-60%. Discussed with patient. She would like to see Dr Ortega at [facility] who took care of her previously. This can be arranged outpatient. (4) Hypertension: Code(s): I10 - Essential (primary) hypertension Status: Chronic Assessment and Plan: BPs reviewed and are relatively stable, last 126/79, maintained on home triamterene-HCTZ. Monitor BP and adjust treatment as needed. (5) Lupus: Code(s): M32.9 - Systemic lupus erythematosus, unspecified Status: Chronic Assessment and Plan: Patient is on low-dose prednisone and sees a plaster patternmaker elsewhere. 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 (6) Cervical radiculopathy: Code(s): M54.12 - Radiculopathy, cervical region Status: Chronic Assessment and Plan: Continue home Lyrica and narcotic pain regimen. Subjective Date/time seen: 11/03/20 11:00 Interval history: Ms. Calvin is a pleasant 65yo F admitted for right lower extremity cellulitis. R leg erythema continues to improve. She is still having moderate pain to right leg especially with walking. Not able to sleep well here but otherwise offers no complaints. No chest pain, shortness of breath, nausea, or vomiting. Tolerating meals, having chicken stir gardner for lunch which is her favorite. Review of Systems Review of Systems: All systems reviewed & are unremarkable except as noted in HPI and below Exam Narrative: Exam Narrative: General: Female resting comfortably sitting up in bed in no acute distress. In good spirits. HEENT: Normocephalic, EOMI, oral mucosa moist. Cardiovascular: Rate and rhythm are regular. Systolic murmur heard over left sternal border. Respiratory: Lungs clear to auscultation bilaterally. Respirations even and non-labored. Tolerating room air. Abdomen: Soft, non-tender, non-distended, bowel sounds present. Extremities: Peripheral pulses intact. Erythema to right lower leg from above the ankle to below the knee, warm to touch, some dry crusting to R medial calf pt reports was previously weeping, R pedal edema - overall improving. LLE with chronic color changes to skin and some minor erythema. Neuro: No focal neurological deficits. Speech is clear. Objective Data Vital Signs Vital Signs: Vital Signs - 24 hr 11/02/20 14:00 11/02/20 22:00 11/03/20 06:00 Temperature 97.8 F 98 F 97.8 F Pulse Rate 92 83 69 Respiratory Rate 20 16 20 Blood Pressure 143/78 H 139/78 152/82 H Pulse Oximetry 98 97 96 Intake/Output Intake/Output: Intake & Output 10/31/20 11/01/20 11/02/20 11/03/20 23:59 23:59 23:59 23:59 Intake Total 2320 1780 1690 970 Output Total 1250 1400 2500 700 Balance 1070 380 -810 270 Meds/Results Medications: Active Me
[2020-11-03 14:00] VITALS: BP 126/79; PULSE 87; RESP 18; TEMP 36.6; O2SAT 94
[2020-11-03 21:34] VITALS: BP 146/97; PULSE 93; RESP 16; TEMP 36.2; O2SAT 95
[2020-11-03] MEDS: TIZANIDINE HCL 4 MG TABLET 8 MG PO (21:41)
[2020-11-04] MEDS: HYDROcodone/acetaminophen (*CRX) 7.5-325 MG TABLET 1 TAB PO ×3 (05:24→19:45)
[2020-11-04 06:00] VITALS: BP 129/81; PULSE 79; RESP 18; TEMP 36.2; O2SAT 97
[2020-11-04 06:42] LABS: Anion Gap 3 mmol/L (8-16); Blood Urea Nitrogen 33 mg/dL (7-17); Calcium 8.9 mg/dL (8.4-10.2); Carbon Dioxide 34 mmol/L (22-30); Chloride 102 mmol/L (98-107); Estimated CRCL calculation 69 ml/min; Estimated Glomerular Filt Rate > 60; Glucose 90 mg/dL (65-105); Magnesium 1.9 mg/dL (1.6-2.3); Potassium 3.9 mmol/L (3.4-5.0); Sodium 139 mmol/L (137-145)
[2020-11-04] MEDS: PANTOPRAZOLE 40 MG TABLET PO (08:01)
[2020-11-04] MEDS: predniSONE 5 MG TABLET PO ×3 (08:01→17:17)
[2020-11-04] MEDS: TRIAMTERENE 37.5 MG/HCTZ 25 MG (MAXZIDE) TABLET 1 TAB PO (08:06)
[2020-11-04] MEDS: PREGABALIN (*CRX) 75 MG CAPSULE 150 MG PO ×2 (08:06→19:56)
--- NOTE | 2020-11-04 11:18 | PM.IMPN ---
Progress Note: A&P Assessment and Plan (1) Cellulitis of leg, right: Code(s): L03.115 - Cellulitis of right lower limb Status: Acute Assessment and Plan: -continue day 5 of ceftriaxone -patient is now having a bit of diarrhea, no signs of C diff at this time (no leukocytosis or abdominal pain) but will monitor -patient is mildly immunosuppressed as she takes 15 mg of prednisone daily -patient Failed 3 rounds oral abx outpatient prior to arrival; multiple abx allergies. -infectious disease consulted and anticipation for possible 7 days IV abx -Blood cultures are pending with no growth to date. -R leg venous US negative for DVT. (2) Renal mass: Code(s): N28.89 - Other specified disorders of kidney and ureter Status: Acute Assessment and Plan: Patient is aware and is going to follow-up with her primary care physician (3) Heart murmur: Code(s): R01.1 - Cardiac murmur, unspecified Status: Chronic Assessment and Plan: -Echocardiogram shows mild to moderate aortic stenosis; normal systolic function EF 55-60%. -Discussed with patient. She would like to see Dr Ortega at [facility] who took care of her previously. (4) Hypertension: Code(s): I10 - Essential (primary) hypertension Status: Chronic Assessment and Plan: Blood pressure 129/81 -continue Maxzide (5) Lupus: Code(s): M32.9 - Systemic lupus erythematosus, unspecified Status: Chronic Assessment and Plan: -Patient is on low-dose prednisone but no other medications -she is in the process of changing doctors since her last 1 retired (6) Cervical radiculopathy: Code(s): M54.12 - Radiculopathy, cervical region Status: Chronic Assessment and Plan: Chronic, continue home Lyrica and narcotic pain regimen. Time Spent With Patient Time with patient: 25 - 35 minutes Subjective Date/time seen: 11/04/20 11:18 Interval history: Pt is a 65-year-old female here for cellulitis. Patient was seen today and is happy with her improvement. She says the erythema is improving and it is not draining very much. She says the area to her skin is itchy but she is trying not to scratch it. She has had a little bit of diarrhea starting yesterday and a few episodes today. She thinks it was a blueberry muffin and yogurt that caused it but will monitor it as I mentioned it could be the antibiotics. We reviewed her medical history and she says that she is going to follow-up with her left kidney mass after her cellulitis has improved. She is also going to follow-up with a seed tester as her old 1 has retired and she has not yet followed up. She understands that there are other medications secondary her lupus. She also is going to follow-up with her murmur. Overall, the patient is improving. She is eating and drinking and does not feel weak. She is up and able to walk around the room. Review of Systems Review of Systems: All systems reviewed & are unremarkable except as noted in HPI and below Exam Narrative: Exam Narrative: General: Well developed well nourished patient in NAD HEENT: normocephalic Neck: supple Neuro: Alert and oriented x4 CV:RRR with 3/6 systolic murmur best heard at the right 2nd intercostal space Resp:CTA Abd: Soft, non distended. No pain to palpation. Positive bowel sounds Extremities: Right leg with some erythema and scabs that has significantly improved compared to photos she had initially. There is no swelling and pulses/sensation are intact. It is not extending out of the demarcated lines and is actually showing improvement. There is some scaling to the area. No open wounds Objective Data Vital Signs Vital Signs: Vital Signs - 24 hr 11/03/20 14:00 11/03/20 21:34 11/04/20 06:00 Temperature 97.8 F 97.2 F L 97.1 F L Pulse Rate 87 93 79 Respiratory Rate 18 16 18 Blood Pressure 126/79 146/97 H 129/81 Pulse Oxim
[2020-11-04 14:00] VITALS: BP 152/90; PULSE 93; RESP 18; TEMP 36.7; O2SAT 97
[2020-11-04 18:01] VITALS: BP 146/82
[2020-11-04] MEDS: AMITRIPTYLINE HCL 25 MG TABLET 50 MG PO (19:52)
[2020-11-04 21:43] VITALS: BP 154/93; PULSE 87; RESP 16; TEMP 35.9; O2SAT 97
[2020-11-05] MEDS: TIZANIDINE HCL 4 MG TABLET 8 MG PO ×2 (00:09→23:53)
[2020-11-05] MEDS: ZOLPIDEM TARTRATE (*CRX) 5 MG TABLET 10 MG PO ×2 (00:09→23:53)
[2020-11-05 06:00] VITALS: BP 146/78; PULSE 75; RESP 18; TEMP 36.5; O2SAT 96
[2020-11-05 06:35] LABS: Hematocrit 41.7 % (37.0-47.0); Hemoglobin 13.8 g/dL (12.0-15.0); Mean Corpuscular HGB Conc 33.1 g/dl (32-36); Mean Corpuscular Hemoglobin 30.7 pg (26-34); Mean Corpuscular Volume 92.7 fl (80-100); Mean Platelet Volume 9.5 fl (7.4-10.4); Platelet Count Result 222 k/mm3 (150-375); Red Cell Distribution Width 13.1 % (11.5-14.5); White Blood Count 11.5 K/mm3 (4.5-10.0)
[2020-11-05 06:45] LABS: Alanine Aminotransferase 26 U/L (4-35); Albumin Level 3.8 g/dL (3.5-5.1); Alkaline Phosphatase 57 U/L (38-126); Anion Gap 3 mmol/L (8-16); Aspartate Amino Transferase 26 U/L (14-36); Bilirubin,Total 0.2 mg/dL (0.2-1.3); Blood Urea Nitrogen 34 mg/dL (7-17); Calcium 9.2 mg/dL (8.4-10.2); Carbon Dioxide 32 mmol/L (22-30); Chloride 103 mmol/L (98-107); Estimated CRCL calculation 78 ml/min; Estimated Glomerular Filt Rate > 60; Glucose 76 mg/dL (65-105); Potassium 3.8 mmol/L (3.4-5.0); Sodium 138 mmol/L (137-145)
[2020-11-05] MEDS: predniSONE 5 MG TABLET PO ×3 (08:14→18:11)
[2020-11-05] MEDS: PANTOPRAZOLE 40 MG TABLET PO (08:15)
[2020-11-05] MEDS: HYDROcodone/acetaminophen (*CRX) 7.5-325 MG TABLET 1 TAB PO ×3 (08:15→21:59)
[2020-11-05] MEDS: TRIAMTERENE 37.5 MG/HCTZ 25 MG (MAXZIDE) TABLET 1 TAB PO (08:15)
[2020-11-05] MEDS: PREGABALIN (*CRX) 75 MG CAPSULE 150 MG PO ×2 (08:18→20:20)
--- NOTE | 2020-11-05 10:45 | PM.IMPN ---
Progress Note: A&P Assessment and Plan (1) Cellulitis of leg, right: Code(s): L03.115 - Cellulitis of right lower limb Status: Acute Assessment and Plan: -continue day 6 of ceftriaxone, anticipate discharge tomorrow after the last dose -will touch base with wound care -diarrhea resolved, no C diff suspected -patient is mildly immunosuppressed as she takes 15 mg of prednisone daily -patient Failed 3 rounds oral abx outpatient prior to arrival; multiple abx allergies. -infectious disease consulted and anticipation for possible 7 days IV abx -Blood cultures are incubating with no growth to date. -R leg venous US negative for DVT. (2) Renal mass: Code(s): N28.89 - Other specified disorders of kidney and ureter Status: Acute Assessment and Plan: Patient is aware and is going to follow-up with her primary care physician (3) Heart murmur: Code(s): R01.1 - Cardiac murmur, unspecified Status: Chronic Assessment and Plan: -Echocardiogram shows mild to moderate aortic stenosis; normal systolic function EF 55-60%. -Discussed with patient. She would like to see Dr Ortega at [facility] who took care of her previously. (4) Hypertension: Code(s): I10 - Essential (primary) hypertension Status: Chronic Assessment and Plan: Blood pressure 146/78 -continue Maxzide (5) Lupus: Code(s): M32.9 - Systemic lupus erythematosus, unspecified Status: Chronic Assessment and Plan: -Patient is on low-dose prednisone but no other medications -she is in the process of changing doctors since her last 1 retired -she understands there are other medications that will help improve her lupus and protect her from long-term affects of lupus (6) Cervical radiculopathy: Code(s): M54.12 - Radiculopathy, cervical region Status: Chronic Assessment and Plan: Chronic, continue home Lyrica and narcotic pain regimen. Subjective Date/time seen: 11/05/20 10:45 Interval history: Pt is a 65-year-old female here for cellulitis. Patient was seen today and is doing well. She finally got a lot of sleep last night and feels much better. She thinks her leg is slowly improving every day. It is still dry/cracked/a little red but overall doing better. Her diarrhea has resolved. Pt denies nausea, vomiting, fevers, chills, constipation,chest pain, sob, or abdominal pain. Exam Narrative: Exam Narrative: General: Well developed well nourished patient in NAD HEENT: normocephalic Neck: supple Neuro: Alert and oriented x4 CV:RRR with 3/6 systolic murmur best heard at the right 2nd intercostal space Resp:CTA Abd: Soft, non distended. No pain to palpation. Positive bowel sounds Extremities: Right leg with some erythema and scabs that has significantly improved compared to photos she had initially. There is no swelling and pulses/sensation are intact. It is not extending out of the demarcated lines and is actually showing improvement. There is some scaling to the area. No open wounds Objective Data Vital Signs Vital Signs: Vital Signs - 24 hr 11/04/20 14:00 11/04/20 18:01 11/04/20 21:43 Temperature 98.0 F 96.6 F L Pulse Rate 93 87 Respiratory Rate 18 16 Blood Pressure 152/90 H 146/82 H 154/93 H Pulse Oximetry 97 97 11/05/20 06:00 Temperature 97.7 F Pulse Rate 75 Respiratory Rate 18 Blood Pressure 146/78 H Pulse Oximetry 96 Intake/Output Intake/Output: Intake & Output 11/02/20 11/03/20 11/04/20 11/05/20 23:59 23:59 23:59 23:59 Intake Total 1690 3560 1250 250 Output Total 2500 1800 1625 700 Balance -810 1760 -375 -450 Meds/Results Medications: Active Medications Generic Name Dose Route Start Last Admin Trade Name Iamq PRN Reason Stop Dose Admin Acetaminophen 650 mg 10/31/20 16:07 11/01/20 22:33 Acetaminophen 325 Mg Tablet PO 650 mg Q4H PRN Administration Pain Rated 5 or
[2020-11-05 14:00] VITALS: BP 143/96; PULSE 88; RESP 18; TEMP 36.7; O2SAT 98
[2020-11-05] MEDS: AMITRIPTYLINE HCL 25 MG TABLET 50 MG PO (20:20)
[2020-11-05 22:00] VITALS: BP 165/94; PULSE 80; RESP 16; TEMP 36.1; O2SAT 97
[2020-11-05 23:25] VITALS: O2SAT 97
[2020-11-06 06:00] VITALS: BP 138/72; PULSE 69; RESP 18; TEMP 36.3; O2SAT 99
[2020-11-06 06:04] LABS: Hematocrit 42.8 % (37.0-47.0); Hemoglobin 13.9 g/dL (12.0-15.0); Mean Corpuscular HGB Conc 32.5 g/dl (32-36); Mean Corpuscular Hemoglobin 30.5 pg (26-34); Mean Corpuscular Volume 94.1 fl (80-100); Mean Platelet Volume 9.8 fl (7.4-10.4); Platelet Count Result 209 k/mm3 (150-375); Red Blood Count 4.55 M/mm3 (4.2-5.4); Red Cell Distribution Width 13.2 % (11.5-14.5); White Blood Count 10.6 K/mm3 (4.5-10.0)
[2020-11-06] MEDS: HYDROcodone/acetaminophen (*CRX) 7.5-325 MG TABLET 1 TAB PO ×2 (07:43→14:31)
[2020-11-06] MEDS: predniSONE 5 MG TABLET PO ×2 (07:44→12:02)
[2020-11-06] MEDS: PANTOPRAZOLE 40 MG TABLET PO (07:44)
[2020-11-06] MEDS: TRIAMTERENE 37.5 MG/HCTZ 25 MG (MAXZIDE) TABLET 1 TAB PO (07:45)
--- NOTE | 2020-11-06 10:58 | PM.DS ---
DS: Admitting Diagnosis Admitting Diagnosis Admitting Diagnosis: cellulitis DS: Discharge Diagnosis Discharge Diagnosis (1) Cellulitis of leg, right: Code(s): L03.115 - Cellulitis of right lower limb Status: Acute Assessment and Plan: -Pt completed 7 days of ceftriaxone while hospitalized and will complete cefdinir outpt -patient is mildly immunosuppressed as she takes 15 mg of prednisone daily -patient Failed 3 rounds oral abx outpatient prior to arrival; multiple abx allergies. -infectious disease consulted during this stay -Blood cultures are finalized with no growth -R leg venous US negative for DVT. (2) Renal mass: Code(s): N28.89 - Other specified disorders of kidney and ureter Status: Acute Assessment and Plan: Patient is aware and is going to follow-up with her primary care physician (3) Heart murmur: Code(s): R01.1 - Cardiac murmur, unspecified Status: Chronic Assessment and Plan: -Echocardiogram shows mild to moderate aortic stenosis; normal systolic function EF 55-60%. -Discussed with patient. She would like to see Dr Ortega at [facility] [place] who took care of her previously. (4) Hypertension: Code(s): I10 - Essential (primary) hypertension Status: Chronic Assessment and Plan: Blood pressure 140/68 -continue Maxzide (5) Lupus: Code(s): M32.9 - Systemic lupus erythematosus, unspecified Status: Chronic Assessment and Plan: -Patient is on low-dose prednisone but no other medications -she is in the process of changing doctors since her last 1 retired -she understands there are other medications that will help improve her lupus and protect her from long-term affects of lupus (6) Cervical radiculopathy: Code(s): M54.12 - Radiculopathy, cervical region Status: Chronic Assessment and Plan: Chronic, continue home Lyrica and narcotic pain regimen. DS: Summary Hospital Course Hospital Course: Patient is a 65 year old female with a past medical history of lupus treated solely with prednisone, renal mass and HTN who presented emergency room for cellulitis of the right leg which failed outpatient treatment. Vitals in the ER were temperature 37.3? F, pulse 91, respiratory rate 18, blood pressure 138/93, pulse ox 100 room air. Initial white blood cell count 10.9, hemoglobin 16.2, hematocrit 47.7, platelets 181. BMP shows slight dehydration. Seen is Doppler study shows no thrombus in the right lower extremity. Patient was started on antibiotics and admitted to the hospitalist service. Infectious Disease was consulted and recommended 7 days of ceftriaxone and oral therapy thereafter. The patient improved this therapy. While she was hospitalized, she was found to have a murmur in the echo was done. It showed for ngts-yd-swmuqxio aortic stenosis and she is going to follow up with a plaster machine operator to get this routinely monitored. She also has a renal mass that she is aware of and already has plans to follow-up with her primary care physician. She does mention that she has lupus and only takes prednisone. She is to have a milking worker but they retired. I suggested that she reestablished with the milking worker for recommendations on further treatment to prevent long-term affects of lupus. Overall, the patient had improved throughout the stay. She finished 7 days of ceftriaxone and will continue cefdinir outpatient. She was educated about the worrisome signs and symptoms to come back to emergency room for was discharged stable condition Status at Discharge Functional status at discharge: independent ambulation Overall status at discharge: patient is progressing back to baseline Time Spent with Patient Time attestation: Total time spent providing and/or coordinating discharge services:38 min Time spent: Greater than 30 minutes Exam Narrative: Exam Narrative: General: Well develop
[2020-11-06] MEDS: PREGABALIN (*CRX) 75 MG CAPSULE 150 MG PO (12:02)
[2020-11-06 14:00] VITALS: BP 140/68; PULSE 73; RESP 18; TEMP 36.6; O2SAT 98
== END 2020-11-06 16:00 | disposition home or self-care (01) | DRG 603 ==
LOC: ANHED 16:03 → ANH3MEDSUR 10-31 07:25
PROVIDERS: Emergency Medicine; Physician Assistant; Admitting Provider Family Medicine; Emergency Provider Emergency Medicine; PCP Physician Assistant; Visit Provider Physician Assistant
DX: L03.115 Cellulitis of right lower limb (principal); D84.9 Immunodeficiency, unspecified; M32.9 Systemic lupus erythematosus, unspecified; M79.3 Panniculitis, unspecified; N28.89 Other specified disorders of kidney and ureter; R01.1 Cardiac murmur, unspecified; I10 Essential (primary) hypertension; M54.12 Radiculopathy, cervical region; Z96.653 Presence of artificial knee joint, bilateral; Z79.52 Long term (current) use of systemic steroids; Z79.899 Other long term (current) drug therapy; Z88.0 Allergy status to penicillin; Z88.1 Allergy status to other antibiotic agents; Z88.2 Allergy status to sulfonamides; Z98.1 Arthrodesis status
CPT/HCPCS: 36415; 80048; 80076; 83605; 83735; 85025; 85027; 85610; 85730; 87040; 93306; 93971; 99285; A9270; J0696; J1170; J1650; J2405; J2765; J3370; J7512

== ENCOUNTER 2020-11-17 08:02 | Outpatient (CLI) | payer MEDICARE, OTHER, SELFPAY ==
--- NOTE | ~2020-11-17 | CT_ITS ---
EXAMINATION: CT abdomen w con DATE: 11/17/2020 09:12 INDICATION: Left kidney mass. TECHNIQUE: Computed tomography (CT) of the abdomen was performed with 100 mL Omnipaque 350 intravenou s contrast. Automated exposure control and iterative reconstruction technique were employed. The dose -length product was 890.21 mGy-cm. COMPARISON: CT abdomen and pelvis 04/23/2011, ultrasound 10/01/2020 FINDINGS: The visualized portions of the lung bases demonstrate mild atelectasis. No pleural effusion . The heart size is normal. No pericardial effusion. There is a small sliding hiatal hernia. The live r, gallbladder, spleen, pancreas, and adrenal glands are normal. There are cysts in the kidneys measu ring up to 2.3 cm on the left. There are no dilated loops of bowel. There are no pathologically enlar ged lymph nodes. There is no free intraperitoneal fluid. There are old healed right rib fractures. Th ere is severe thoracolumbar spondylosis. There is thoracolumbar levoscoliosis and lumbar dextroscolio sis. IMPRESSION: 1. Benign cysts in the kidneys. 2. Small sliding hiatal hernia. Reviewed, dictated and finalized at location B.
== END 2020-11-17 08:03 | disposition home or self-care (01) ==
PROVIDERS: PCP Physician Assistant; Visit Provider Physician Assistant
DX: N28.89 Other specified disorders of kidney and ureter (principal); K44.9 Diaphragmatic hernia without obstruction or gangrene
CPT/HCPCS: 74160; Q9967

== ENCOUNTER 2021-03-03 11:30 | Outpatient (CLI) | payer MEDICARE, OTHER, SELFPAY ==
[2021-03-03 13:11] LABS: Cholesterol 189 mg/dL (0-200); HDL Direct 74 mg/dL; Triglycerides 143 mg/dL (<150)
[2021-03-03 13:22] LABS: LDL Cholesterol Direct 78 mg/dL
== END 2021-03-03 11:31 | disposition home or self-care (01) ==
PROVIDERS: PCP Family Medicine; Visit Provider Internal Medicine Cardiovascular Disease
DX: E78.2 Mixed hyperlipidemia (principal)
CPT/HCPCS: 36415; 80061

== ENCOUNTER → 2023-07-27 11:11 | Outpatient (CLI) | payer MEDICARE, OTHER, SELFPAY ==
--- NOTE | ~2023-07-27 | US_ITS ---
EXAMINATION: US soft tissue UE RT DATE: 07/27/2023 11:45 INDICATION: Other shoulder lesions, right shoulder. TECHNIQUE: Multiple grayscale and Doppler ultrasound images of the right upper extremity were obtaine d. COMPARISON: Chest 2 views 07/28/2016 FINDINGS: There is a 3.7 x 1.2 cm multiloculated cystic mass in the subcutaneous fat superficial to t he right acromioclavicular region. IMPRESSION: 1. 3.7 x 1.2 cm multiloculated cystic mass superficial to the right acromioclavicular region, likely a ganglion cyst. Consider right shoulder MRI. Reviewed, dictated and finalized at location E. 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 3.7 x 1.2 cm multiloculated cystic mass superficial to the right acromioclav icular region, likely a ganglion cyst. Consider right shoulder MRI.
== END ==
PROVIDERS: PCP Physician Assistant; Visit Provider Physician Assistant
DX: M75.81 Other shoulder lesions, right shoulder (principal); R22.30 Localized swelling, mass and lump, unspecified upper limb
CPT/HCPCS: 76882

== ENCOUNTER 2024-01-29 17:27 | Emergency (ER) | payer MEDICARE, OTHER, SELFPAY ==
[2024-01-29 17:32] VITALS: BP 114/91; PULSE 100; RESP 18; TEMP 36.4; O2SAT 100
--- NOTE | 2024-01-29 17:43 | ED.GENADULT ---
HPI - General Adult General Chief complaint: Nausea/Vomiting/Diarrhea Stated complaint: vomiting for 4 weeks Time Seen by Provider: 01/29/24 17:31 History of Present Illness HPI narrative: 68-year-old female presenting to the emergency department for evaluation for persistent nausea vomiting and dehydration. Patient states he has been ongoing for the last 3-4 weeks. Patient denies any medication changes. Patient states the reason she present to the emergency department today is because it seems to be worse since last night. Patient denies any abdominal pain. Patient denies any diarrhea. Patient denies medical marijuana. Related Data Home Medications Medication Instructions Recorded Confirmed pregabalin 150 mg capsule (Lyrica) 150 mg PO BID 05/07/20 08/15/23 omeprazole 20 mg PO QAM GERD 10/30/20 08/15/23 hydroxychloroquine 200 mg tablet 200 mg PO BID 04/21/21 08/15/23 cyanocobalamin (vitamin B-12) 2,000 mcg PO DAILY 08/15/23 08/15/23 2,000 mcg tablet Allergies Allergy/AdvReac Type Severity Reaction Status Date / Time cephalexin Allergy Unknown Vomiting Verified 01/29/24 17:27 metronidazole Allergy Unknown Unknown Verified 01/29/24 17:27 Penicillins Allergy Unknown Unknown Verified 01/29/24 17:27 Sulfa (Sulfonamide Allergy Unknown Unknown Verified 01/29/24 17:27 Antibiotics) dicloxacillin AdvReac Intermediate SOB Verified 01/29/24 17:27 sulfamethoxazole AdvReac Intermediate SOB Verified 01/29/24 17:27 trimethoprim AdvReac Intermediate SOB Verified 01/29/24 17:27 Review of Systems Review of Systems: All systems reviewed & are unremarkable except as noted in HPI and below PMFSH Past Medical History Medical History Cervical radiculopathy Current chronic use of systemic steroids Encounter for immunization Hypertension Lumbar spinal stenosis Lupus Panniculitis with secondary chronic pain Prediabetes Right anterior knee pain (~12/2018) Vitamin D deficiency Surgical History Surgical History History of bilateral knee replacement History of carpal tunnel release History of fusion of cervical spine (~2013) History of lumpectomy left breast History of rotator cuff surgery left side Family History Family History Father Hypertension Acute myocardial infarction Mother Family history of Parkinson's disease Family history of genetic disorder Social History Social History Social History: The patient recently lost her due to COVID and is now . She has no children. She desires to be a full code and does not have a durable power employment attorney for healthcare. 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 Smoking status: Never smoker Second hand tobacco smoke exposure: No Alcohol intake: never Substance use: never Substance use type: does not use Do You Feel Safe in your Home?: Yes Lack of Transportation: No Current Housing: I Have Housing Concerned About Future Housing: No Difficulty Paying Gas/Electric Bills: Decline to Answer Difficulty Paying for Meds: No Currently Unemployed: No Education: Associate Degree Difficulty w/ Childcare or Family Care: No Living arrangements: with family Gender identity (if verbalized by the patient): Female Sexual Orientation (if Verbalized by the Patient): Straight or Heterosexual Spiritual care concerns: No Agree to blood products: Yes Exam Narrative: APPEARANCE: Well appearing, no pain, no distress, well-nourished. HEAD: normocephalic, atraumatic. EYES: PERRLA/EOMI, conjunctivae clear. NOSE: Normal no drainage EARS:TMS clear with good light reflex. THROAT: Pharynx clear, no exudate. NECK: Supple. No adenopathy, no masses. RESPIRATORY: Airway patent, respirations nonlabored. Yazmin
[2024-01-29 17:51] LABS: Basophils Absolute Auto 0.1 K/mm3 (0.0-0.1); Basophils Percent Auto 0.5 % (0.2-1.2); Eosinophils Percent Auto 0.1 % (0-4.4); Hematocrit 50.1 % (37.0-47.0); Hemoglobin 17.9 g/dL (12.0-15.0); Immature Granulocyte Absolute 0.05 K/mm3 (0.00-0.031); Immature Granulocyte Percent A 0.4 % (0-0.5); Lymphocytes Absolute Auto 1.11 K/mm3 (0.9-3.2); Mean Corpuscular HGB Conc 35.7 g/dl (32-36); Mean Corpuscular Volume 86.8 fl (80-100); Mean Platelet Volume 10.6 fl (7.4-10.4); Monocytes Absolute Auto 0.7 K/mm3 (0.1-0.6); Neutrophils Absolute Auto 10.4 K/mm3 (1.3-6.7); Platelet Count Result 195 k/mm3 (150-375); Red Blood Count 5.77 M/mm3 (4.2-5.4); Red Cell Distribution Width 13.8 % (11.5-14.5); White Blood Count 12.3 K/mm3 (4.5-10.0)
[2024-01-29] MEDS: SODIUM CHLORIDE 0.9% IV 1,000 ML 999 ML IV CONT (17:51)
[2024-01-29] MEDS: METOCLOPRAMIDE HCL INJ 10 MG/2 ML VIAL IV PUSH (17:51)
[2024-01-29 18:01] VITALS: BP 105/78; PULSE 84; RESP 20; O2SAT 96
[2024-01-29 18:02] LABS: Alanine Aminotransferase 34 U/L (6-35); Albumin Level 4.8 g/dL (3.5-5.1); Alkaline Phosphatase 89 U/L (38-126); Anion Gap 16 mmol/L (4-12); Aspartate Amino Transferase 42 U/L (14-36); Bilirubin,Total 1.4 mg/dL (0.2-1.3); Blood Urea Nitrogen 24 mg/dL (7-17); Calcium 9.6 mg/dL (8.4-10.2); Carbon Dioxide 31 mmol/L (22-30); Chloride 86 mmol/L (98-107); Estimated CRCL calculation 40 ml/min; Estimated Glomerular Filt Rate 49; Glucose 100 mg/dL (65-110); Sodium 133 mmol/L (137-145)
[2024-01-29 18:10] LABS: Appearance Urine Cloudy (Clear); Bacteria Urine None Seen /hpf; Bilirubin Urine 3+ (Negative); Blood Urine Negative (Negative); Color Urine Dark Yellow (Yellow); Glucose Urine UA Negative (Negative); Ketones Urine 2+ mg/dL (Negative); Leukocyte Esterase Ur Trace LEU/UL (Negative); Need Manual Microscopic Reviewed; Nitrate Urine Negative (Negative); Non Pathogenic Casts >20; Protein Urine 2+ mg/dL (Negative); Specific Grav Ur 1.025 (1.001-1.035); Squamous Epithelial Cell Urine Moderate /hpf (Few); WBC Urine 0-5 /hpf (0-3); pH Urine 5.5 (5.0-9.0)
[2024-01-29 18:12] LABS: Add Urine Microscopic? YES
[2024-01-29 18:15] VITALS: BP 99/65; PULSE 78; RESP 16; O2SAT 100
[2024-01-29] MEDS: KCL 20 MEQ/SW 100 ML 100 ML 50 MEQ IVPB (18:30)
[2024-01-29] MEDS: SODIUM CHLORIDE 0.9% IV 1,000 ML 500 ML IV CONT (18:49)
[2024-01-29 20:22] VITALS: BP 114/79; PULSE 87; RESP 16; O2SAT 97
== END 2024-01-29 20:26 | disposition home or self-care (01) ==
PROVIDERS: Emergency Provider Emergency Medicine; PCP Family Medicine
DX: R11.2 Nausea with vomiting, unspecified (principal); I10 Essential (primary) hypertension
CPT/HCPCS: 36415; 80053; 81001; 85025; 96365; 96375; 99284; J2765; J3480; J7030

== ENCOUNTER 2024-02-08 20:44 | Inpatient (IN) | payer MEDICARE, OTHER, SELFPAY ==
--- NOTE | ~2024-02-08 | CT_ITS ---
CT of the Abdomen and Pelvis: Indication: GI bleed Technique: 2.5 mm axial scans were obtained through the abdomen and pelvis following intravenous adm inistration of 100 cc of Omnipaque 350. Dose reduction technique was used on this scan by utilizing a utomated exposure control and iterative reconstruction technique. The dose-length product (DLP) was 4 31.66 mGy-cm. COMPARISON: 11/17/2020 Findings: Scans through the lung bases are unremarkable. Small to moderate hiatal hernia present. Probable diffuse hepatic steatosis noted. The spleen, pancreas, gallbladder, adrenals and kidneys are within normal limits. There is mild atherosclerotic calcification of the aorta. No aortic aneurysm. No lymphadenopathy. No bowel obstruction or bowel wall thickening. There is no evidence to suggest acute appendicitis. Images through the pelvis were performed. Urinary bladder unremarkable. No pelvic mass seen. No ascit es. There is degenerative spondylosis of the spine, with 8 mm anterolisthesis of L3 over L4, and 7 mm anterolisthesis of L4 over L5. Impression: No acute abnormality seen. No CT evidence for active GI bleed. Pmrmx-so-idmcysii hiatal hernia. Probable fatty infiltration of liver. Reviewed, dictated and finalized at [facility]. Impression: No acute abnormality seen. No CT evidence for active GI bleed. Ioels-me-dyphehva hiatal hernia. Probable fatty infiltration of liver.
--- NOTE | ~2024-02-08 | XR_ITS ---
Portable chest x-ray Comparison: 07/28/2016 Clinical History: Cough Findings: Lungs are clear, without focal consolidation or pleural effusion. Cardiomediastinal silho uette is stable. Cervical spinal fixation hardware present. There is degenerative change of both shou lders. Impression: Clear lungs. Reviewed, dictated and finalized at location . Impression: Clear lungs.
[2024-02-08 21:19] VITALS: BP 123/81; PULSE 85; RESP 14; TEMP 36.4; O2SAT 100
[2024-02-08 22:12] LABS: Basophils Absolute Auto 0.1 K/mm3 (0.0-0.1); Basophils Percent Auto 0.6 % (0.2-1.2); Eosinophils Percent Auto 0.4 % (0-4.4); Hematocrit 44.1 % (37.0-47.0); Hemoglobin 15.6 g/dL (12.0-15.0); Immature Granulocyte Absolute 0.04 K/mm3 (0.00-0.031); Immature Granulocyte Percent A 0.5 % (0-0.5); Lymphocytes Absolute Auto 0.76 K/mm3 (0.9-3.2); Lymphocytes Percent Auto 9.2 % (18.3-44.2); Mean Corpuscular HGB Conc 35.4 g/dl (32-36); Mean Corpuscular Volume 87.7 fl (80-100); Mean Platelet Volume 9.7 fl (7.4-10.4); Monocytes Absolute Auto 0.6 K/mm3 (0.1-0.6); Monocytes Percent Auto 6.6 % (2.6-8.5); Neutrophils Absolute Auto 6.9 K/mm3 (1.3-6.7); Neutrophils Percent Auto 82.7 % (45.5-73.1); Platelet Count Result 193 k/mm3 (150-375); Red Blood Count 5.03 M/mm3 (4.2-5.4); Red Cell Distribution Width 14.1 % (11.5-14.5); White Blood Count 8.3 K/mm3 (4.5-10.0)
[2024-02-08 22:21] LABS: Alanine Aminotransferase 25 U/L (6-35); Albumin Level 4.7 g/dL (3.5-5.1); Alkaline Phosphatase 79 U/L (38-126); Anion Gap 22 mmol/L (4-12); Aspartate Amino Transferase 31 U/L (14-36); Bilirubin,Total 1.5 mg/dL (0.2-1.3); Blood Urea Nitrogen 14 mg/dL (7-17); Calcium 9.3 mg/dL (8.4-10.2); Carbon Dioxide 23 mmol/L (22-30); Chloride 89 mmol/L (98-107); Estimated CRCL calculation 67 ml/min; Estimated Glomerular Filt Rate > 60; Glucose 68 mg/dL (65-110); Lipase 86 U/L (23-300); Potassium 2.9 mmol/L (3.4-5.0); Sodium 134 mmol/L (137-145)
[2024-02-09] VITALS (12 sets, daily range): BP systolic 104–132; BP diastolic 55–92; PULSE 72–82; RESP 14–20; TEMP 36–36.6; O2SAT 93–100; BMI 28.3
--- NOTE | 2024-02-09 00:17 | ECG_ITS ---
Test Date: 2024-02-09 00:29:06 Measurements Intervals [place] Rate: 82 P: -4 KS: 157 QRS: 49 QRSD: 86 T: 76 QT: 381 QTc: 445 Interpretive Statements SINUS RHYTHM NONSPECIFIC T-WAVE ABNORMALITY BORDERLINE ECG No previous ECG available for comparison Electronically Signed On 02-10-2024 10:48:59 CDT by Melvin Bustos M.D.
[2024-02-09] MEDS: SODIUM CHLORIDE 0.9% IV 1,000 ML 999 ML IV CONT (00:26)
[2024-02-09] MEDS: KCL 20 MEQ/SW 100 ML 100 ML 50 MEQ IVPB ×2 (00:27→16:03)
[2024-02-09] MEDS: FAMOTIDINE 20 MG/2 ML VIAL IV PUSH (00:28)
[2024-02-09] MEDS: ONDANSETRON INJ 4 MG/2 ML VIAL IV PUSH ×3 (00:28→20:22)
--- NOTE | 2024-02-09 00:43 | ED.GIBLEED ---
HPI - GI Bleed General Chief complaint: Nausea/Vomiting/Diarrhea Stated complaint: vomiting Time Seen by Provider: 02/09/24 00:16 Source: patient Limitations: no limitations History of Present Illness HPI Narrative: Patient is a 68-year-old female presents to the emergency department complaining of nausea and vomiting. Patient states she has been having intermittent episodes of nausea and vomiting since July and she was here for this about 1 and half weeks ago and got discharged with follow-up to Gastroenterology but has not been able to get in to Gastroenterology because she has not been feeling well. Patient notes that typically it is food like contents in the past when she vomits however this time it started last night approximately 24 hours ago in which she had 10 episodes of dark appearing emesis. Patient notes no episodes throughout the past day but she has been persistently nauseous. Patient notes that she is able to drink water but has not been able to eat any food because she is afraid to. Patient states she has been taking the medications prescribed to her. Patient admits to history of an EGD many years ago in addition to a colonoscopy many years ago. Patient denies melena, hematochezia, recent injuries, abdominal pain, chest pain, difficulty breathing, lightheadedness, use of NSAIDs, use of anticoagulants, use of alcohol, sick contacts, fever, urinary discomfort. Patient denies any use of Pepto-Bismol or iron supplements. Patient states that she has lost approximately 40 lb of weight over the past 7 months since this started. Related Data Home Medications Medication Instructions Recorded Confirmed pregabalin 150 mg capsule (Lyrica) 150 mg PO BID 05/07/20 08/15/23 omeprazole 20 mg PO QAM GERD 10/30/20 08/15/23 hydroxychloroquine 200 mg tablet 200 mg PO BID 04/21/21 08/15/23 cyanocobalamin (vitamin B-12) 2,000 mcg PO DAILY 08/15/23 08/15/23 2,000 mcg tablet Allergies Allergy/AdvReac Type Severity Reaction Status Date / Time cephalexin Allergy Unknown Vomiting Verified 01/29/24 17:27 metronidazole Allergy Unknown Unknown Verified 01/29/24 17:27 Penicillins Allergy Unknown Unknown Verified 01/29/24 17:27 Sulfa (Sulfonamide Allergy Unknown Unknown Verified 01/29/24 17:27 Antibiotics) dicloxacillin AdvReac Intermediate SOB Verified 01/29/24 17:27 sulfamethoxazole AdvReac Intermediate SOB Verified 01/29/24 17:27 trimethoprim AdvReac Intermediate SOB Verified 01/29/24 17:27 Review of Systems Review of Systems: A 10 system review of systems was completed on the patient and is negative except for what is stated in the HPI. Nursing and ancillary documentation was reviewed. [facility] Past Medical History Medical History Cervical radiculopathy Current chronic use of systemic steroids Encounter for immunization Hypertension Lumbar spinal stenosis Lupus Panniculitis with secondary chronic pain Prediabetes Right anterior knee pain (~12/2018) Vitamin D deficiency Surgical History Surgical History History of bilateral knee replacement History of carpal tunnel release History of fusion of cervical spine (~2013) History of lumpectomy left breast History of rotator cuff surgery left side Family History Family History Father Hypertension Acute myocardial infarction Mother Family history of Parkinson's disease Family history of genetic disorder Social History Social History Social History: The patient recently lost her due to COVID and is now . She has no children. She desires to be a full code and does not have a durable power sprinkler tender for healthcare. 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 Smoking status: Never smoker Second hand tobacco smok
[2024-02-09 00:45] LABS: Magnesium 1.5 mg/dL (1.6-2.3)
[2024-02-09 00:46] LABS: Lactic Acid Reflex 1.4 mmol/L (0.7-2.0)
[2024-02-09 00:47] LABS: INR 1.1; Prothrombin Time 14.4 Seconds (11.1-14.7)
[2024-02-09] MEDS: PANTOPRAZOLE SODIUM IV 40 MG VIAL IV PUSH (00:49)
[2024-02-09 00:58] LABS: Troponin I < 0.012 ng/mL (0.000-0.034)
[2024-02-09] MEDS: MAGNESIUM SULF 2 GM/WATER 50ML 2 GM/50 ML BAG IVPB (01:16)
[2024-02-09 01:18] LABS: Influenza A QL RT-PCR Negative (Negative); Influenza B QL RT-PCR Negative (Negative); RSV RNA, RT-PCR Negative (Negative); SARS-CoV-2 RNA PCR Negative (Negative)
[2024-02-09 01:56] LABS: Add Urine Microscopic? YES; Appearance Urine Cloudy (Clear); Bacteria Urine 4+ /hpf; Bilirubin Urine Negative (Negative); Blood Urine Negative (Negative); Color Urine Dark Yellow (Yellow); Glucose Urine UA Negative (Negative); Ketones Urine 4+ mg/dL (Negative); Leukocyte Esterase Ur 2+ LEU/UL (Negative); Need Manual Microscopic Reviewed; Nitrate Urine Negative (Negative); Protein Urine 2+ mg/dL (Negative); RBC Urine 21-50 /hpf (0-2); Specific Grav Ur 1.022 (1.001-1.035); Squamous Epithelial Cell Urine Occasional /hpf (Few); WBC Urine 0-5 /hpf (0-3)
[2024-02-09] MEDS: DEXTROSE 5%/0.9% SOD CHL 1,000 ML 125 ML IV CONT (02:48)
--- NOTE | 2024-02-09 05:04 | ADMGEN ---
This patient, January Calvin, was admitted to [facility] Surg Room 331-01. Patient/family oriented to hospital policies and general routines including ID bracelet, bed and alarms, visiting hours, pain management, procedures, bathroom and other care routines, personal items, smoking policy, room service/diet, and visiting hours. Information on how to activate the Rapid Response Team has been discussed. Patient/Family are encouraged to report perceived risks to care and to ask questions if they do not understand what they are told or what they should do.
[2024-02-09 08:44] LABS: Alanine Aminotransferase 18 U/L (6-35); Albumin Level 3.2 g/dL (3.5-5.1); Alkaline Phosphatase 58 U/L (38-126); Anion Gap 15 mmol/L (4-12); Aspartate Amino Transferase 24 U/L (14-36); Blood Urea Nitrogen 11 mg/dL (7-17); Calcium 8.1 mg/dL (8.4-10.2); Carbon Dioxide 21 mmol/L (22-30); Chloride 98 mmol/L (98-107); Estimated CRCL calculation 77 ml/min; Estimated Glomerular Filt Rate > 60; Glucose 102 mg/dL (65-110); Potassium 2.9 mmol/L (3.4-5.0); Sodium 134 mmol/L (137-145)
[2024-02-09 08:49] LABS: Basophils Percent Auto 0.6 % (0.2-1.2); Eosinophils Absolute Auto 0.1 K/mm3 (0-0.3); Eosinophils Percent Auto 1.2 % (0-4.4); Hematocrit 35.4 % (37.0-47.0); Hemoglobin 12.5 g/dL (12.0-15.0); Immature Granulocyte Absolute 0.03 K/mm3 (0.00-0.031); Immature Granulocyte Percent A 0.5 % (0-0.5); Lymphocytes Absolute Auto 0.99 K/mm3 (0.9-3.2); Lymphocytes Percent Auto 14.9 % (18.3-44.2); Mean Corpuscular HGB Conc 35.3 g/dl (32-36); Mean Corpuscular Volume 87.8 fl (80-100); Mean Platelet Volume 10.2 fl (7.4-10.4); Monocytes Absolute Auto 0.6 K/mm3 (0.1-0.6); Monocytes Percent Auto 8.7 % (2.6-8.5); Neutrophils Absolute Auto 4.9 K/mm3 (1.3-6.7); Neutrophils Percent Auto 74.1 % (45.5-73.1); Platelet Count Result 164 k/mm3 (150-375); Red Blood Count 4.03 M/mm3 (4.2-5.4); Red Cell Distribution Width 14.1 % (11.5-14.5); White Blood Count 6.6 K/mm3 (4.5-10.0)
--- NOTE | 2024-02-09 09:43 | PM.IMHP ---
H&P: HPI History of Present Illness Date/Time: 02/09/24 09:43 Chief Complaint: Nausea/vomiting/diarrhea Narrative: This is a 68-year-old female with a significant past medical history of cervical radiculopathy, hypertension, lupus, prediabetes, vitamin-D deficiency who presented to the emergency room with complaints of nausea/vomiting. Patient reports the following history of presenting illness. Patient states that she has had ongoing intermittent nausea and vomiting since December. She was recently seen on 01/29/2024 with similar complaints and was discharged with expectation to follow-up with GI he has not been able to get in with the GI doctor due to not feeling well. She states that she is able to drink water and some fluids but has not been able to eat food. Patient states that she has lost approximately 40 lb of weight over the past 2 months since this started. Patient denies any fever, chills, nausea, vomiting, diarrhea, abdominal pain, chest pain, shortness a breath. Workup in the hospital includes chest x-ray which was clear. Abdomen/pelvis CTA showed no acute abnormality, no CT evidence for active GI bleed, small to moderate hiatal hernia, fatty infiltration of liver. Patient was started on Protonix, Pepcid, Zofran, IV fluids, potassium and magnesium replacement. Review of Systems Review of Systems: All systems reviewed & are unremarkable except as noted in HPI and below Constitutional: Constitutional: Reports as per HPI and Reports no additional constitutional complaints Eyes: Eyes: Reports as per HPI and Reports no additional eye complaints ENT: Reports system reviewed and no additional complaints, except as documented and Reports as per HPI Cardiovascular: Cardiovascular: Reports as per HPI and Reports no additional cardiovascular complaints Respiratory: Respiratory: Reports as per HPI and Reports no additional respiratory complaints Gastrointestinal: Gastrointestinal: Reports as per HPI and Reports no additional gastrointestinal complaints Genitourinary: Genitourinary: Reports no additional female genitourinary complaints and Reports as per HPI Musculoskeletal: Musculoskeletal: Reports no additional musculoskeletal complaints and Reports as per HPI Integumentary/Breasts: Skin/Breast: Reports system reviewed and no additional complaints, except as docu and Reports as per HPI Neurologic: Reports system reviewed and no additional complaints, except as documented and Reports as per HPI Psychiatric: Psychiatric: Reports no additional psychiatric complaints and Reports as per HPI [facility] Past Medical History Medical History Cervical radiculopathy Current chronic use of systemic steroids Encounter for immunization Hypertension Lumbar spinal stenosis Lupus Panniculitis with secondary chronic pain Prediabetes Right anterior knee pain (~12/2018) Vitamin D deficiency Surgical History Surgical History History of bilateral knee replacement History of carpal tunnel release History of fusion of cervical spine (~2013) History of lumpectomy left breast History of rotator cuff surgery left side Family History Family History Father Hypertension Acute myocardial infarction Mother Family history of Parkinson's disease Family history of genetic disorder Social History Social History Social History: The patient recently lost her due to COVID and is now . She has no children. She desires to be a full code and does not have a durable power tax attorney for healthcare. 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 Smoking status: Never smoker Second hand tobacco smoke exposure: No Alcohol intake: never Substance use: never Substance use type: does not
[2024-02-09] MEDS: POTASSIUM CHLORIDE INJ 40 MEQ in SODIUM CHLORIDE 0.9% IV 500 ML 130 MEQ IVPB (10:58)
[2024-02-09] MEDS: POTASSIUM CHLORIDE 20 MEQ ER TABLET 40 MEQ PO (16:28)
[2024-02-09] MEDS: HYDROcodone/acetaminophen (*CRX) 10-325 MG TABLET 1 TAB PO (16:28)
[2024-02-09] MEDS: HYDROXYCHLOROQUINE SULFATE 200 MG TABLET PO (18:22)
[2024-02-09] MEDS: ZOLPIDEM TARTRATE (*CRX) 5 MG TABLET 10 MG PO (22:16)
[2024-02-09] MEDS: AMITRIPTYLINE HCL 25 MG TABLET 50 MG PO (22:16)
[2024-02-10] VITALS: PULSE 77
[2024-02-10 04:00] VITALS: PULSE 75
[2024-02-10] MEDS: ONDANSETRON INJ 4 MG/2 ML VIAL IV PUSH ×2 (05:46→18:39)
[2024-02-10 06:00] VITALS: BP 124/81; PULSE 78; RESP 15; TEMP 36; O2SAT 97
[2024-02-10 06:24] LABS: Basophils Percent Auto 0.9 % (0.2-1.2); Eosinophils Absolute Auto 0.1 K/mm3 (0-0.3); Eosinophils Percent Auto 2.5 % (0-4.4); Hematocrit 36.1 % (37.0-47.0); Hemoglobin 12.7 g/dL (12.0-15.0); Immature Granulocyte Absolute 0.02 K/mm3 (0.00-0.031); Immature Granulocyte Percent A 0.5 % (0-0.5); Lymphocytes Absolute Auto 1.02 K/mm3 (0.9-3.2); Lymphocytes Percent Auto 23.1 % (18.3-44.2); Mean Corpuscular HGB Conc 35.2 g/dl (32-36); Mean Corpuscular Hemoglobin 31.4 pg (26-34); Mean Corpuscular Volume 89.4 fl (80-100); Mean Platelet Volume 9.8 fl (7.4-10.4); Monocytes Absolute Auto 0.4 K/mm3 (0.1-0.6); Monocytes Percent Auto 9.5 % (2.6-8.5); Neutrophils Absolute Auto 2.8 K/mm3 (1.3-6.7); Neutrophils Percent Auto 63.5 % (45.5-73.1); Platelet Count Result 143 k/mm3 (150-375); Red Blood Count 4.04 M/mm3 (4.2-5.4); Red Cell Distribution Width 14.4 % (11.5-14.5); White Blood Count 4.4 K/mm3 (4.5-10.0)
[2024-02-10 06:39] LABS: Sodium 133 mmol/L (137-145)
[2024-02-10 06:40] LABS: Alanine Aminotransferase 17 U/L (6-35); Albumin Level 3.1 g/dL (3.5-5.1); Alkaline Phosphatase 60 U/L (38-126); Anion Gap 7 mmol/L (4-12); Aspartate Amino Transferase 26 U/L (14-36); Bilirubin,Total 1.1 mg/dL (0.2-1.3); Blood Urea Nitrogen 7 mg/dL (7-17); Calcium 8.5 mg/dL (8.4-10.2); Carbon Dioxide 27 mmol/L (22-30); Chloride 99 mmol/L (98-107); Estimated CRCL calculation 77 ml/min; Estimated Glomerular Filt Rate > 60; Glucose 80 mg/dL (65-110); Potassium 3.2 mmol/L (3.4-5.0)
[2024-02-10 08:00] VITALS: PULSE 82
--- NOTE | 2024-02-10 08:18 | WPDGICN ---
Assessment and Plan Assessment and plan (1) Nausea & vomiting: Qualifiers: Vomiting type: unspecified Qualified Code(s): R11.2 - Nausea with vomiting, unspecified Code(s): R11.2 - Nausea with vomiting, unspecified Status: Inactive (2) Weight loss: Code(s): R63.4 - Abnormal weight loss Status: Acute (3) Family history of stomach cancer: Code(s): Z80.0 - Family history of malignant neoplasm of digestive organs Status: Acute (4) Hyponatremia: Code(s): E87.1 - Hypo-osmolality and hyponatremia Status: Acute (5) Hypokalemia: Code(s): E87.6 - Hypokalemia Status: Acute (6) Dry heaves: Code(s): R11.10 - Vomiting, unspecified Status: Acute Plan 1. Nausea/vomiting/dry heaves/weight loss/personal Hx of stomach cancer: Patient has never had an EGD. Sister was diagnosed with stomach cancer in her 30's[address] CT 02/09/2024 showed a small to moderate hiatal hernia but was otherwise unremarkable from a GI standpoint.Patient states that she has bunch of thick mucus draining from her sinuses that is gagging her and causing nausea and dry heaving which has been occurring since December. She states that if she drinks a lot of water or blows her nose often the mucus is decreased and her symptoms also improved. She has not denied any vomiting since admission. Nausea has improved with antiemetics. per patient she has lost 40 lb over the past 2 months. She states that her appetite has been improving and she was able to tolerate her meals yesterday without difficulty. Patient admits that on Tuesday she had an episode of dark colored emesis but states that it was not coffee-ground or bright red and was see through . denies coffee-ground emesis or hematemesis since admission. H&H stable showing HGB 13, HCT 36. DDX: Excessive postnasal drainage versus motility disorder versus acid/non acid reflux vs char ulcer or Gladys-Peñaloza tear less likely neoplasm. Trial of saline nasal spray to thin out mucus drainage Reglan 5 mg BID Continue supportive care with antiemetics Consider ENT to evaluate and provide suggestions for management of increased sinus drainage Recommend outpatient EGD given family history of stomach cancer in sister, however we will be scheduled outpatient 2. Hypokalemia/hyponatremia: Labs today show sodium 133 and potassium 3.2. Likely secondary to GI fluid loss. primary care team to continue monitoring and correct Thank you very much for allowing me to share in the care this very nice patient. This report may have been done utilizing a voice recognition system. Attempts have been made to correct errors. However, there may be uncorrected grammatical, spelling, and recognition errors present. GI Consult Note Consult date/time: 02/10/24 08:18 Reason for consult: Nausea and vomiting HPI: This is a pleasant 68 year old female with a past medical surgical history of HTN, spinal stenosis, lupus, cervical radiculopathy, bilateral knee replacement. She presents to the office today for evaluation of nausea and vomiting since December. She was seen in [place] ER 01/29/2024 with similar complaints and was advised to follow up with GI. The first couple weeks she was sick anything she ate was coming up. Then it got better. Then it slowly started again, but it was a lot of mucus coming up. On Tuesday night she was heaving and it almost looked black ( except it wasn't, like, grounds. It was see through ). This happened about 10 times. She denies any belly pain, just aches from throwing up. She is still nauseated but not having vomiting currently. She reports a sensation of mucus in the back of her throat that is gagging her ( so much mucus ). She has some postnasal drainage and has found that if she blows her nose more often she doesn't have as much mucus and the nausea gets better. She saw an ENT doctor a long time ago. She denies feeling like food is sitting in
[2024-02-10] MEDS: HYDROXYCHLOROQUINE SULFATE 200 MG TABLET PO ×2 (08:39→16:07)
[2024-02-10] MEDS: predniSONE 2.5 MG TABLET 7.5 MG PO (08:39)
[2024-02-10] MEDS: TRIAMTERENE 37.5 MG/HCTZ 25 MG (MAXZIDE) TABLET 1 TAB PO (08:39)
[2024-02-10 09:11] LABS: Magnesium 1.6 mg/dL (1.6-2.3)
[2024-02-10] MEDS: PANTOPRAZOLE 40 MG TABLET PO (09:29)
[2024-02-10] MEDS: SALINE 0.65% NAS SOLN 44 ML BTL 1 SPRAY NASAL (10:02)
[2024-02-10] MEDS: METOCLOPRAMIDE HCL 5 MG TABLET PO ×2 (10:23→16:07)
[2024-02-10] MEDS: POTASSIUM CHLORIDE INJ 40 MEQ in SODIUM CHLORIDE 0.9% IV 500 ML 50 MEQ IVPB (10:40)
--- NOTE | 2024-02-10 10:42 | P.PNIM_ITS ---
Progress Note: A&P Assessment and Plan (1) Intractable nausea and vomiting: Code(s): R11.2 - Nausea with vomiting, unspecified Status: Acute Assessment and Plan: 02/09/24: * Has had ongoing nausea and vomiting since December with a 40 lb weight loss. * She was seen 1 and half weeks ago here at the hospital and was told to follow- up with GI however has not made that appointment * GI consulted, however we have no coverage for interventions until Tuesday * Continue IV fluids * Continue nausea medication * Tolerating clear liquid diet will advance to full 02/10/24: * Still reporting bouts of nausea and vomiting * Dietitian consult * GI nurse practitioner is starting Reglan b.i.d., will monitor for improvement * Continue IV fluids * Continue nausea medication * Will stick with full liquids today * If no drastic improvement, I discussed with her the need for an EGD and possibly transfer out of our hospital to a hospital with GI coverage. She wants to try the medications today to see if she has any improvements before considering transfer * Replace electrolytes as needed (2) Acute hypokalemia: Code(s): E87.6 - Hypokalemia Status: Acute Assessment and Plan: 02/09/24: * Potassium 2.9 * She was given 60 mEq of potassium today 02/10/24: * Potassium 3.2 today * Will give 40 meq of KCL today (3) Hypomagnesemia: Code(s): E83.42 - Hypomagnesemia Status: Acute Assessment and Plan: 02/09/24: * Magnesium 1.5 * Patient given 2 g of Mag 02/10/24: * Magnesium 1.6 today * Will give 2 gm Mag today (4) Protein-calorie malnutrition, moderate: Code(s): E44.0 - Moderate protein-calorie malnutrition Status: Acute Assessment and Plan: 02/10/24: * Dietitian consult * Patient has lost 40 lb over the last 2 months due to increased nausea and vomiting. She states she has not had any solid foods on a consistent basis for the last 2 months. She states she has a little hold down clears at times. * GI consulted and recommended Reglan b.i.d. and to follow-up outpatient for EGD/colonoscopy (5) Lupus: Code(s): M32.9 - Systemic lupus erythematosus, unspecified Status: Chronic Assessment and Plan: 02/09/24: * Continue hydroxychloroquine and prednisone 02/10/24: * No change to current treatment plan (6) Hypertension: Qualifiers: Hypertension type: essential hypertension Qualified Code(s): I10 - Essential (primary) hypertension Code(s): I10 - Essential (primary) hypertension Status: Chronic Assessment and Plan: 02/09/24: * Blood pressures ranging 112/64 to 124/76 * Continue triamterene/hydrochlorothiazide 02/10/24: * No change to current treatment plan Time Spent With Patient Time with patient: Greater than 35 minutes Subjective Date/time seen: 02/10/24 10:42 Interval history: Interval History: This is a 68-year-old female with a significant past medical history of cervical radiculopathy, hypertension, lupus, prediabetes, vitamin-D deficiency who presented to the emergency room with complaints of nausea/vomiting. Patient reports the following history of presenting illness. Patient states that she has had ongoing intermittent nausea and vomiting since December. She was recently seen on 01/29/2024 with similar complaints and was discharged with expectation to follow-up with GI he has not been able to get in with the GI doctor due to not feeling well. She states that she is able to drink water and some fluids but has not been able to eat food
--- NOTE | 2024-02-10 10:42 | PM.IMPN ---
Progress Note: A&P Assessment and Plan (1) Intractable nausea and vomiting: Code(s): R11.2 - Nausea with vomiting, unspecified Status: Acute Assessment and Plan: 02/09/24: Has had ongoing nausea and vomiting since December with a 40 lb weight loss. She was seen 1 and half weeks ago here at the hospital and was told to follow-up with GI however has not made that appointment GI consulted, however we have no coverage for interventions until Tuesday Continue IV fluids Continue nausea medication Tolerating clear liquid diet will advance to full 02/10/24: Still reporting bouts of nausea and vomiting Dietitian consult GI nurse practitioner is starting Reglan b.i.d., will monitor for improvement Continue IV fluids Continue nausea medication Will stick with full liquids today If no drastic improvement, I discussed with her the need for an EGD and possibly transfer out of our hospital to a hospital with GI coverage. She wants to try the medications today to see if she has any improvements before considering transfer Replace electrolytes as needed (2) Acute hypokalemia: Code(s): E87.6 - Hypokalemia Status: Acute Assessment and Plan: 02/09/24: Potassium 2.9 She was given 60 mEq of potassium today 02/10/24: Potassium 3.2 today Will give 40 meq of KCL today (3) Hypomagnesemia: Code(s): E83.42 - Hypomagnesemia Status: Acute Assessment and Plan: 02/09/24: Magnesium 1.5 Patient given 2 g of Mag 02/10/24: Magnesium 1.6 today Will give 2 gm Mag today (4) Protein-calorie malnutrition, moderate: Code(s): E44.0 - Moderate protein-calorie malnutrition Status: Acute Assessment and Plan: 02/10/24: Dietitian consult Patient has lost 40 lb over the last 2 months due to increased nausea and vomiting. She states she has not had any solid foods on a consistent basis for the last 2 months. She states she has a little hold down clears at times. GI consulted and recommended Reglan b.i.d. and to follow-up outpatient for EGD/colonoscopy (5) Lupus: Code(s): M32.9 - Systemic lupus erythematosus, unspecified Status: Chronic Assessment and Plan: 02/09/24: Continue hydroxychloroquine and prednisone 02/10/24: No change to current treatment plan (6) Hypertension: Qualifiers: Hypertension type: essential hypertension Qualified Code(s): I10 - Essential (primary) hypertension Code(s): I10 - Essential (primary) hypertension Status: Chronic Assessment and Plan: 02/09/24: Blood pressures ranging 112/64 to 124/76 Continue triamterene/hydrochlorothiazide 02/10/24: No change to current treatment plan Time Spent With Patient Time with patient: Greater than 35 minutes Subjective Date/time seen: 02/10/24 10:42 Interval history: Interval History: This is a 68-year-old female with a significant past medical history of cervical radiculopathy, hypertension, lupus, prediabetes, vitamin-D deficiency who presented to the emergency room with complaints of nausea/vomiting. Patient reports the following history of presenting illness. Patient states that she has had ongoing intermittent nausea and vomiting since December. She was recently seen on 01/29/2024 with similar complaints and was discharged with expectation to follow-up with GI he has not been able to get in with the GI doctor due to not feeling well. She states that she is able to drink water and some fluids but has not been able to eat food. Patient states that she has lost approximately 40 lb of weight over the past 2 months since this started. Patient denies any fever, chills, nausea, vomiting, diarrhea, abdominal pain, chest pain, shortness a breath. Workup in the hospital includes chest x-ray which was clear. Abdomen/pelvis CTA showed no acute abnormality, no CT evidence for active GI bleed, small to moderate hiatal hernia, fatty infiltration of liver. Patient was started on Pr
[2024-02-10] MEDS: MAGNESIUM SULF 2 GM/WATER 50ML 2 GM/50 ML BAG IVPB (11:07)
[2024-02-10 13:06] VITALS: BMI 28.3
[2024-02-10 15:14] VITALS: BP 117/89; PULSE 75; RESP 16; TEMP 36.3; O2SAT 99
[2024-02-10 20:47] VITALS: BP 108/74; PULSE 73; RESP 18; TEMP 35.8; O2SAT 97
[2024-02-10] MEDS: PROCHLORPERAZINE EDISYLATE 10 MG/2 ML VIAL IV PUSH (20:56)
[2024-02-10] MEDS: ZOLPIDEM TARTRATE (*CRX) 5 MG TABLET 10 MG PO (22:38)
[2024-02-10] MEDS: AMITRIPTYLINE HCL 25 MG TABLET 50 MG PO (22:38)
[2024-02-11 06:00] VITALS: BP 138/93; PULSE 70; RESP 18; TEMP 35.8; O2SAT 98
[2024-02-11] MEDS: METOCLOPRAMIDE HCL 5 MG TABLET PO (07:54)
[2024-02-11] MEDS: predniSONE 10 MG TABLET PO (07:54)
[2024-02-11] MEDS: TRIAMTERENE 37.5 MG/HCTZ 25 MG (MAXZIDE) TABLET 1 TAB PO (07:54)
[2024-02-11] MEDS: HYDROXYCHLOROQUINE SULFATE 200 MG TABLET PO ×2 (07:54→16:44)
[2024-02-11] MEDS: PANTOPRAZOLE 40 MG TABLET PO ×2 (07:54→16:44)
[2024-02-11 09:27] LABS: Hematocrit 38.5 % (37.0-47.0); Hemoglobin 13.5 g/dL (12.0-15.0); Mean Corpuscular HGB Conc 35.1 g/dl (32-36); Mean Corpuscular Hemoglobin 30.9 pg (26-34); Mean Corpuscular Volume 88.1 fl (80-100); Mean Platelet Volume 9.8 fl (7.4-10.4); Platelet Count Result 170 k/mm3 (150-375); Red Blood Count 4.37 M/mm3 (4.2-5.4); Red Cell Distribution Width 14.5 % (11.5-14.5); White Blood Count 4.2 K/mm3 (4.5-10.0)
[2024-02-11 09:48] LABS: Alanine Aminotransferase 20 U/L (6-35); Albumin Level 3.6 g/dL (3.5-5.1); Alkaline Phosphatase 67 U/L (38-126); Anion Gap 8 mmol/L (4-12); Aspartate Amino Transferase 30 U/L (14-36); Bilirubin,Total 1.1 mg/dL (0.2-1.3); Blood Urea Nitrogen 6 mg/dL (7-17); Calcium 9.1 mg/dL (8.4-10.2); Carbon Dioxide 27 mmol/L (22-30); Chloride 96 mmol/L (98-107); Estimated CRCL calculation 67 ml/min; Estimated Glomerular Filt Rate > 60; Glucose 100 mg/dL (65-110); Magnesium 1.7 mg/dL (1.6-2.3); Potassium 3.6 mmol/L (3.4-5.0); Sodium 131 mmol/L (137-145)
[2024-02-11 10:06] LABS: Add Urine Microscopic? YES; Appearance Urine Clear (Clear); Bacteria Urine 4+ /hpf; Bilirubin Urine Negative (Negative); Blood Urine Negative (Negative); Color Urine Yellow (Yellow); Glucose Urine UA Negative (Negative); Ketones Urine Negative (Negative); Leukocyte Esterase Ur Trace LEU/UL (Negative); Nitrate Urine Negative (Negative); Protein Urine Negative (Negative); RBC Urine 0-2 /hpf (0-2); Specific Grav Ur 1.007 (1.001-1.035); Squamous Epithelial Cell Urine None Seen /hpf (Few); WBC Urine 0-5 /hpf (0-3)
[2024-02-11 14:00] VITALS: BP 98/63; PULSE 83; RESP 20; TEMP 36.4; O2SAT 95
[2024-02-11] MEDS: HALOPERIDOL LACTATE 5 MG/ML VIAL 1 MG IV PUSH (14:23)
--- NOTE | 2024-02-11 14:51 | P.PNIM_ITS ---
Progress Note: A&P Assessment and Plan (1) Intractable nausea and vomiting: Code(s): R11.2 - Nausea with vomiting, unspecified Status: Acute Assessment and Plan: 02/09/24: * Has had ongoing nausea and vomiting since December with a 40 lb weight loss. * She was seen 1 and half weeks ago here at the hospital and was told to follow- up with GI however has not made that appointment * GI consulted, however we have no coverage for interventions until Tuesday * Continue IV fluids * Continue nausea medication * Tolerating clear liquid diet will advance to full 02/10/24: * Still reporting bouts of nausea and vomiting * Dietitian consult * GI nurse practitioner is starting Reglan b.i.d., will monitor for improvement * Continue IV fluids * Continue nausea medication * Will stick with full liquids today * If no drastic improvement, I discussed with her the need for an EGD and possibly transfer out of our hospital to a hospital with GI coverage. 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 (2) Acute hypokalemia: Code(s): E87.6 - Hypokalemia Status: Acute Assessment and Plan: 02/09/24: * Potassium 2.9 * She was given 60 mEq of potassium today 02/10/24: * Potassium 3.2 today * Will give 40 meq of KCL today STABLE (3) Hypomagnesemia: Code(s): E83.42 - Hypomagnesemia Status: Acute Assessment and Plan: 02/09/24: * Magnesium 1.5 * Patient given 2 g of Mag 02/10/24: * Magnesium 1.6 today * Will give 2 gm Mag today STABLE (4) Protein-calorie malnutrition, moderate: Code(s): E44.0 - Moderate protein-calorie malnutrition Status: Acute Assessment and Plan: 02/10/24: * Dietitian consult * Patient has lost 40 lb over the last 2 months due to increased nausea and vomiting. She states she has not had any solid foods on a consistent basis for the last 2 months. She states she has a little hold down clears at times. * GI consulted and recommended Reglan b.i.d. and to follow-up outpatient for EGD/colonoscopy (5) Lupus: Code(s): M32.9 - Systemic lupus erythematosus, unspecified Status: Chronic Assessment and Plan: 02/09/24: * Continue hydroxychloroquine and prednisone 02/10/24: * No change to current treatment plan (6) Hypertension: Qualifiers: Hypertension type: essential hypertension Qualified Code(s): I10 - Essential (primary) hypertension Code(s): I10 - Essential (primary) hypertension Status: Chronic Assessment and Plan: 02/09/24: * Blood pressures ranging 112/64 to 124/76 * Continue triamterene/hydrochlorothiazide 02/10/24: * No change to current treatment plan Plan Code status: Full code per patient DVT prophylaxis: Lovenox Stress ulcer prophylaxis: Protonix 40 BID PT/OT notes: Ambulatory Disposition: Patient continues admission to the medical unit due to intractable vomiting slowly improving tolerating small amounts oral intake continue to replenish electrolytes GI following for recommendations. Patient is ambulatory on own and plan is to return when medically stable Time Spent With Patient Time with patient: 15 -
--- NOTE | 2024-02-11 14:51 | PM.IMPN ---
Progress Note: A&P Assessment and Plan (1) Intractable nausea and vomiting: Code(s): R11.2 - Nausea with vomiting, unspecified Status: Acute Assessment and Plan: 02/09/24: Has had ongoing nausea and vomiting since December with a 40 lb weight loss. She was seen 1 and half weeks ago here at the hospital and was told to follow-up with GI however has not made that appointment GI consulted, however we have no coverage for interventions until Tuesday Continue IV fluids Continue nausea medication Tolerating clear liquid diet will advance to full 02/10/24: Still reporting bouts of nausea and vomiting Dietitian consult GI nurse practitioner is starting Reglan b.i.d., will monitor for improvement Continue IV fluids Continue nausea medication Will stick with full liquids today If no drastic improvement, I discussed with her the need for an EGD and possibly transfer out of our hospital to a hospital with GI coverage. 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 (2) Acute hypokalemia: Code(s): E87.6 - Hypokalemia Status: Acute Assessment and Plan: 02/09/24: Potassium 2.9 She was given 60 mEq of potassium today 02/10/24: Potassium 3.2 today Will give 40 meq of KCL today STABLE (3) Hypomagnesemia: Code(s): E83.42 - Hypomagnesemia Status: Acute Assessment and Plan: 02/09/24: Magnesium 1.5 Patient given 2 g of Mag 02/10/24: Magnesium 1.6 today Will give 2 gm Mag today STABLE (4) Protein-calorie malnutrition, moderate: Code(s): E44.0 - Moderate protein-calorie malnutrition Status: Acute Assessment and Plan: 02/10/24: Dietitian consult Patient has lost 40 lb over the last 2 months due to increased nausea and vomiting. She states she has not had any solid foods on a consistent basis for the last 2 months. She states she has a little hold down clears at times. GI consulted and recommended Reglan b.i.d. and to follow-up outpatient for EGD/colonoscopy (5) Lupus: Code(s): M32.9 - Systemic lupus erythematosus, unspecified Status: Chronic Assessment and Plan: 02/09/24: Continue hydroxychloroquine and prednisone 02/10/24: No change to current treatment plan (6) Hypertension: Qualifiers: Hypertension type: essential hypertension Qualified Code(s): I10 - Essential (primary) hypertension Code(s): I10 - Essential (primary) hypertension Status: Chronic Assessment and Plan: 02/09/24: Blood pressures ranging 112/64 to 124/76 Continue triamterene/hydrochlorothiazide 02/10/24: No change to current treatment plan Plan Code status: Full code per patient DVT prophylaxis: Lovenox Stress ulcer prophylaxis: Protonix 40 BID PT/OT notes: Ambulatory Disposition: Patient continues admission to the medical unit due to intractable vomiting slowly improving tolerating small amounts oral intake continue to replenish electrolytes GI following for recommendations. Patient is ambulatory on own and plan is to return when medically stable Time Spent With Patient Time with patient: 15 - 25 minutes Subjective Date/time seen: 02/11/24 14:51 Interval history: Interval History: This is a 68-year-old female with a significant past medical history of cervical radiculopathy, hypertension, lupus, prediabetes, vitamin-D deficiency who presented to the emergency room with complaints of nausea/vomiting. Patient reports the following history of presenting illness. Patient states that she has had ongoing intermittent nausea and vomiting since December. She was recently seen on 01/29/2024 with
[2024-02-11 20:53] VITALS: BP 110/80; PULSE 81; RESP 20; TEMP 36.2; O2SAT 100
[2024-02-11] MEDS: AMITRIPTYLINE HCL 25 MG TABLET 50 MG PO (23:05)
[2024-02-11] MEDS: ZOLPIDEM TARTRATE (*CRX) 5 MG TABLET 10 MG PO (23:05)
[2024-02-11] MEDS: PROCHLORPERAZINE EDISYLATE 10 MG/2 ML VIAL IV PUSH (23:05)
[2024-02-12 06:00] VITALS: BP 107/63; PULSE 82; RESP 18; TEMP 36.2; O2SAT 98
[2024-02-12 06:07] LABS: Hemoglobin 13.8 g/dL (12.0-15.0); Mean Corpuscular HGB Conc 34.5 g/dl (32-36); Mean Corpuscular Hemoglobin 30.7 pg (26-34); Mean Corpuscular Volume 88.9 fl (80-100); Mean Platelet Volume 10.3 fl (7.4-10.4); Platelet Count Result 178 k/mm3 (150-375); Red Cell Distribution Width 14.2 % (11.5-14.5); White Blood Count 4.8 K/mm3 (4.5-10.0)
[2024-02-12 06:28] LABS: Alanine Aminotransferase 23 U/L (6-35); Albumin Level 3.8 g/dL (3.5-5.1); Alkaline Phosphatase 75 U/L (38-126); Anion Gap 7 mmol/L (4-12); Aspartate Amino Transferase 32 U/L (14-36); Bilirubin,Total 1.1 mg/dL (0.2-1.3); Blood Urea Nitrogen 5 mg/dL (7-17); Calcium 9.4 mg/dL (8.4-10.2); Carbon Dioxide 28 mmol/L (22-30); Chloride 95 mmol/L (98-107); Estimated CRCL calculation 67 ml/min; Estimated Glomerular Filt Rate > 60; Glucose 85 mg/dL (65-110); Potassium 3.3 mmol/L (3.4-5.0); Sodium 130 mmol/L (137-145)
[2024-02-12] MEDS: POTASSIUM CHLORIDE INJ 40 MEQ in SODIUM CHLORIDE 0.9% IV 500 ML 130 MEQ IVPB (09:21)
[2024-02-12] MEDS: HYDROXYCHLOROQUINE SULFATE 200 MG TABLET PO ×2 (09:22→17:34)
[2024-02-12] MEDS: predniSONE 2.5 MG TABLET 7.5 MG PO (09:22)
[2024-02-12] MEDS: TRIAMTERENE 37.5 MG/HCTZ 25 MG (MAXZIDE) TABLET 1 TAB PO (09:22)
[2024-02-12] MEDS: PANTOPRAZOLE 40 MG TABLET PO ×2 (09:22→17:34)
[2024-02-12] MEDS: SODIUM CHLORIDE 0.9% IV 250 ML 100 ML (09:28)
--- NOTE | 2024-02-12 09:34 | PC.NURSE ---
Pt was complaining about how much the Kw/fluids burned when it was started at 90 so a 250ml bag of fluids was added to help with that
--- NOTE | 2024-02-12 11:08 | P.PNIM_ITS ---
Progress Note: A&P Assessment and Plan (1) Intractable nausea and vomiting: Code(s): R11.2 - Nausea with vomiting, unspecified Status: Acute Assessment and Plan: 02/09/24: * Has had ongoing nausea and vomiting since December with a 40 lb weight loss. * She was seen 1 and half weeks ago here at the hospital and was told to follow- up with GI however has not made that appointment * GI consulted, however we have no coverage for interventions until Tuesday * Continue IV fluids * Continue nausea medication * Tolerating clear liquid diet will advance to full 02/10/24: * Still reporting bouts of nausea and vomiting * Dietitian consult * GI nurse practitioner is starting Reglan b.i.d., will monitor for improvement * Continue IV fluids * Continue nausea medication * Will stick with full liquids today * If no drastic improvement, I discussed with her the need for an EGD and possibly transfer out of our hospital to a hospital with GI coverage. 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 02/12/2024: * NPO after midnight * possible EGD 02/13/2024 (2) Acute hypokalemia: Code(s): E87.6 - Hypokalemia Status: Acute Assessment and Plan: 02/09/24: * Potassium 2.9 * She was given 60 mEq of potassium today 02/10/24: * Potassium 3.2 today * Will give 40 meq of KCL today STABLE (3) Hypomagnesemia: Code(s): E83.42 - Hypomagnesemia Status: Acute Assessment and Plan: 02/09/24: * Magnesium 1.5 * Patient given 2 g of Mag 02/10/24: * Magnesium 1.6 today * Will give 2 gm Mag today STABLE (4) Protein-calorie malnutrition, moderate: Code(s): E44.0 - Moderate protein-calorie malnutrition Status: Acute Assessment and Plan: 02/10/24: * Dietitian consult * Patient has lost 40 lb over the last 2 months due to increased nausea and vomiting. She states she has not had any solid foods on a consistent basis for the last 2 months. She states she has a little hold down clears at times. * GI consulted and recommended Reglan b.i.d. and to follow-up outpatient for EGD/colonoscopy (5) Lupus: Code(s): M32.9 - Systemic lupus erythematosus, unspecified Status: Chronic Assessment and Plan: 02/09/24: * Continue hydroxychloroquine and prednisone 02/10/24: * No change to current treatment plan (6) Hypertension: Qualifiers: Hypertension type: essential hypertension Qualified Code(s): I10 - Essential (primary) hypertension Code(s): I10 - Essential (primary) hypertension Status: Chronic Assessment and Plan: 02/09/24: * Blood pressures ranging 112/64 to 124/76 * Continue triamterene/hydrochlorothiazide 02/10/24: * No change to current treatment plan Plan Code status: Full code per patient DVT prophylaxis: Lovenox Stress ulcer prophylaxis: Protonix 40 BID PT/OT notes: Ambulatory Disposition: Patient continues admission to the medical unit due to intractable vomiting slowly improving tolerating small amounts oral intake continue to replenish electrolytes GI following for recommendations. Still vomiting, NPO tonight for possible EGD tomorrow 02/13/2024. Patient is ambulatory
--- NOTE | 2024-02-12 11:08 | PM.IMPN ---
Progress Note: A&P Assessment and Plan (1) Intractable nausea and vomiting: Code(s): R11.2 - Nausea with vomiting, unspecified Status: Acute Assessment and Plan: 02/09/24: Has had ongoing nausea and vomiting since December with a 40 lb weight loss. She was seen 1 and half weeks ago here at the hospital and was told to follow-up with GI however has not made that appointment GI consulted, however we have no coverage for interventions until Tuesday Continue IV fluids Continue nausea medication Tolerating clear liquid diet will advance to full 02/10/24: Still reporting bouts of nausea and vomiting Dietitian consult GI nurse practitioner is starting Reglan b.i.d., will monitor for improvement Continue IV fluids Continue nausea medication Will stick with full liquids today If no drastic improvement, I discussed with her the need for an EGD and possibly transfer out of our hospital to a hospital with GI coverage. 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 02/12/2024: NPO after midnight possible EGD 02/13/2024 (2) Acute hypokalemia: Code(s): E87.6 - Hypokalemia Status: Acute Assessment and Plan: 02/09/24: Potassium 2.9 She was given 60 mEq of potassium today 02/10/24: Potassium 3.2 today Will give 40 meq of KCL today STABLE (3) Hypomagnesemia: Code(s): E83.42 - Hypomagnesemia Status: Acute Assessment and Plan: 02/09/24: Magnesium 1.5 Patient given 2 g of Mag 02/10/24: Magnesium 1.6 today Will give 2 gm Mag today STABLE (4) Protein-calorie malnutrition, moderate: Code(s): E44.0 - Moderate protein-calorie malnutrition Status: Acute Assessment and Plan: 02/10/24: Dietitian consult Patient has lost 40 lb over the last 2 months due to increased nausea and vomiting. She states she has not had any solid foods on a consistent basis for the last 2 months. She states she has a little hold down clears at times. GI consulted and recommended Reglan b.i.d. and to follow-up outpatient for EGD/colonoscopy (5) Lupus: Code(s): M32.9 - Systemic lupus erythematosus, unspecified Status: Chronic Assessment and Plan: 02/09/24: Continue hydroxychloroquine and prednisone 02/10/24: No change to current treatment plan (6) Hypertension: Qualifiers: Hypertension type: essential hypertension Qualified Code(s): I10 - Essential (primary) hypertension Code(s): I10 - Essential (primary) hypertension Status: Chronic Assessment and Plan: 02/09/24: Blood pressures ranging 112/64 to 124/76 Continue triamterene/hydrochlorothiazide 02/10/24: No change to current treatment plan Plan Code status: Full code per patient DVT prophylaxis: Lovenox Stress ulcer prophylaxis: Protonix 40 BID PT/OT notes: Ambulatory Disposition: Patient continues admission to the medical unit due to intractable vomiting slowly improving tolerating small amounts oral intake continue to replenish electrolytes GI following for recommendations. Still vomiting, NPO tonight for possible EGD tomorrow 02/13/2024. Patient is ambulatory on own and plan is to return when medically stable Time Spent With Patient Time with patient: 15 - 25 minutes Subjective Date/time seen: 02/12/24 11:08 Interval history: Interval History: This is a 68-year-old female with a significant past medical history of cervical radiculopathy, hypertension, lupus, prediabetes, vitamin-D deficiency who presented to the emergency room with complaints of nausea/vomiting. Patient reports the following history of presenting illness. Patient
[2024-02-12] MEDS: METOCLOPRAMIDE HCL 5 MG TABLET PO (13:34)
[2024-02-12 14:00] VITALS: BP 113/72; PULSE 90; RESP 18; TEMP 36.5; O2SAT 94
[2024-02-12 21:08] VITALS: BP 114/79; PULSE 86; RESP 18; TEMP 36.4; O2SAT 98
[2024-02-12] MEDS: AMITRIPTYLINE HCL 25 MG TABLET 50 MG PO (22:05)
[2024-02-12] MEDS: ZOLPIDEM TARTRATE (*CRX) 5 MG TABLET 10 MG PO (22:05)
[2024-02-13 05:53] VITALS: BP 110/73; PULSE 92; RESP 16; TEMP 36.1; O2SAT 98
[2024-02-13 05:59] LABS: Hematocrit 38.3 % (37.0-47.0); Hemoglobin 13.3 g/dL (12.0-15.0); Mean Corpuscular HGB Conc 34.7 g/dl (32-36); Mean Corpuscular Hemoglobin 31.1 pg (26-34); Mean Corpuscular Volume 89.7 fl (80-100); Mean Platelet Volume 10.3 fl (7.4-10.4); Platelet Count Result 183 k/mm3 (150-375); Red Blood Count 4.27 M/mm3 (4.2-5.4); Red Cell Distribution Width 14.5 % (11.5-14.5); White Blood Count 4.7 K/mm3 (4.5-10.0)
[2024-02-13 06:09] LABS: Albumin Level 3.7 g/dL (3.5-5.1); Alkaline Phosphatase 72 U/L (38-126); Anion Gap 8 mmol/L (4-12); Aspartate Amino Transferase 43 U/L (14-36); Blood Urea Nitrogen 6 mg/dL (7-17); Calcium 9.3 mg/dL (8.4-10.2); Carbon Dioxide 28 mmol/L (22-30); Chloride 96 mmol/L (98-107); Estimated CRCL calculation 59 ml/min; Estimated Glomerular Filt Rate > 60; Glucose 86 mg/dL (65-110); Potassium 3.5 mmol/L (3.4-5.0); Sodium 132 mmol/L (137-145)
[2024-02-13 06:13] LABS: Alanine Aminotransferase < 6 U/L (6-35)
--- NOTE | 2024-02-13 07:49 | WPDGIPROGNO ---
Progress Note: A&P Assessment and Plan (1) Nausea & vomiting: Qualifiers: Vomiting type: unspecified Qualified Code(s): R11.2 - Nausea with vomiting, unspecified Code(s): R11.2 - Nausea with vomiting, unspecified Status: Inactive (2) Dry heaves: Code(s): R11.10 - Vomiting, unspecified Status: Acute (3) Family history of stomach cancer: Code(s): Z80.0 - Family history of malignant neoplasm of digestive organs Status: Acute (4) Hyponatremia: Code(s): E87.1 - Hypo-osmolality and hyponatremia Status: Acute (5) Hypokalemia: Code(s): E87.6 - Hypokalemia Status: Acute Plan 1. Nausea/vomiting/dry heaves/weight loss/personal Hx of stomach cancer: Patient has never had an EGD. Sister was diagnosed with stomach cancer in her 30's. CT 02/09/2024 showed a small to moderate hiatal hernia but was otherwise unremarkable from a GI standpoint. Patient states that she has bunch of thick mucus draining from her sinuses that is gagging her and causing nausea and dry heaving which has been occurring since December. She states that if she drinks a lot of water or blows her nose often the mucus is decreased and her symptoms also improved. Per patient she has lost 40 lb over the past 2 months. Patient admits that on 02/06 she had an episode of dark colored emesis but states that it was not coffee-ground or bright red and was see through . denies coffee-ground emesis or hematemesis since admission. Mild improvement with saline nasal spray and Reglan but she is still having episodes of vomiting typically occurring after meals denies dry heaves. She states that her appetite has been improving. H&H stable showing HGB 13, HCT 38. DDX: Excessive postnasal drainage versus motility disorder versus acid/non acid reflux vs char ulcer or Gladys-Peñaloza tear less likely neoplasm. Continue saline nasal spray Increase Reglan to 10 mg before meals and bedtime Start loratadine for problematic allergies continue as outpatient Regular diet today NPO after midnight Plans for EGD tomorrow Consider ENT to evaluate and provide suggestions for management of increased sinus drainage 2. Hypokalemia/hyponatremia: Labs today show sodium 132 and potassium 3.5. Likely secondary to GI fluid loss. primary care team to continue monitoring and correct Thank you very much for allowing me to share in the care this very nice patient. This report may have been done utilizing a voice recognition system. Attempts have been made to correct errors. However, there may be uncorrected grammatical, spelling, and recognition errors present. Time Spent With Patient Time with patient: 15 - 25 minutes Subjective Date/time seen: 02/13/24 07:49 Interval history: The patient reports that she had one episode of vomiting yesterday after eating lunch that lasted about 30 minutes. The vomitus was all food . She denies any vomiting today. Her nausea stopped around 8 pm yesterday. Denies any abdominal pain or dysphagia. She has been using the saline nasal spray as directed and feels it has been helping to thin post nasal drainage. She reports the Reglan 5 mg b.i.d. has helped a little bit but not completely. Her appetite is still decreased. She is having normal bowel movements every 3 days which is her baseline. She denies any constipation, bloating or abdominal discomfort. Review of Systems Constitutional: Constitutional: Reports as per HPI ENT: Reports as per HPI Cardiovascular: Cardiovascular: Reports as per HPI, Denies chest pain and Denies dyspnea Respiratory: Respiratory: Denies cough, Denies hemoptysis and Denies dyspnea Gastrointestinal: Gastrointestinal: Reports as per HPI Musculoskeletal: Musculoskeletal: Reports as per HPI Integumentary/Breasts: Skin/Breast: Reports as per HPI Psychiatric: Psychiatric: Reports as per HPI Endocrine: Endocrine: Reports no additional endocrine complai
[2024-02-13] MEDS: HYDROXYCHLOROQUINE SULFATE 200 MG TABLET PO ×2 (08:39→18:44)
[2024-02-13] MEDS: predniSONE 10 MG TABLET PO (08:39)
[2024-02-13] MEDS: TRIAMTERENE 37.5 MG/HCTZ 25 MG (MAXZIDE) TABLET 1 TAB PO (08:39)
[2024-02-13] MEDS: PANTOPRAZOLE 40 MG TABLET PO ×2 (08:39→16:26)
[2024-02-13] MEDS: LORATADINE/PSEUDOEPHEDRINE (*CRX) 10/240 MG TABLET ER 24 HR 1 TAB PO (08:44)
[2024-02-13] MEDS: METOCLOPRAMIDE HCL 5 MG TABLET PO (08:45)
--- NOTE | 2024-02-13 09:39 | PCNFU ---
Nutrition Follow-Up Complete: Severe protein calorie malnutrition related to acute nausea and vomiting as evidenced by weight loss 18%/3 months; intakes <50% needs >1 week; moderate muscle wasting and fat loss to buccal fat pads, temporalis Goal: Diet advancement - Diet advanced to regular Improve intake - Goal not being met. Pt still vomiting and unable to keep food down Pt current nutrition is Regular diet. Intakes ~0%. Able to eat mashed potatoes over the weekend. Nutrition recommendation: No new recommendations. Awaiting GI results Last recorded weight is 77.27 kg. Bowel Motility: Last BM 02/08/24 Labs Reviewed: Na 132, Bun 6 Meds Noted: reglan, Zofran, Protonix, prenisone, compazine Skin: No skin issues Additional Notes: Still vomiting and unable to eat, NPO for EGD tomorrow. Continue current care plan and follow closely Monitoring diet advancement, GI output, weights, labs, intakes, plan of care Follow up in 3 days
[2024-02-13] MEDS: METOCLOPRAMIDE HCL 10 MG TABLET PO ×3 (12:02→20:15)
[2024-02-13 14:00] VITALS: BP 102/77; PULSE 92; RESP 18; TEMP 36.3; O2SAT 96
--- NOTE | 2024-02-13 15:23 | P.PNIM_ITS ---
Progress Note: A&P Assessment and Plan (1) Intractable nausea and vomiting: Code(s): R11.2 - Nausea with vomiting, unspecified Status: Acute Assessment and Plan: 02/09/24: * Has had ongoing nausea and vomiting since December with a 40 lb weight loss. * She was seen 1 and half weeks ago here at the hospital and was told to follow- up with GI however has not made that appointment * GI consulted, however we have no coverage for interventions until Tuesday * Continue IV fluids * Continue nausea medication * Tolerating clear liquid diet will advance to full 02/10/24: * Still reporting bouts of nausea and vomiting * Dietitian consult * GI nurse practitioner is starting Reglan b.i.d., will monitor for improvement * Continue IV fluids * Continue nausea medication * Will stick with full liquids today * If no drastic improvement, I discussed with her the need for an EGD and possibly transfer out of our hospital to a hospital with GI coverage. 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 02/12/2024: * NPO after midnight * possible EGD 02/13/2024 02/13/24: * NPO after midnight * EGD in the morning * GI following * Continue Reglan (2) Protein-calorie malnutrition, moderate: Code(s): E44.0 - Moderate protein-calorie malnutrition Status: Acute Assessment and Plan: 02/10/24: * Dietitian consult * Patient has lost 40 lb over the last 2 months due to increased nausea and vomiting. She states she has not had any solid foods on a consistent basis for the last 2 months. She states she has a little hold down clears at times. * GI consulted and recommended Reglan b.i.d. and to follow-up outpatient for EGD/colonoscopy 02/13/24: * No change (3) Lupus: Code(s): M32.9 - Systemic lupus erythematosus, unspecified Status: Chronic Assessment and Plan: 02/09/24: * Continue hydroxychloroquine and prednisone 02/10/24: * No change to current treatment plan (4) Hypertension: Qualifiers: Hypertension type: essential hypertension Qualified Code(s): I10 - Essential (primary) hypertension Code(s): I10 - Essential (primary) hypertension Status: Chronic Assessment and Plan: 02/09/24: * Blood pressures ranging 112/64 to 124/76 * Continue triamterene/hydrochlorothiazide 02/10/24: * No change to current treatment plan Time Spent With Patient Time with patient: 15 - 25 minutes Subjective Date/time seen: 02/13/24 15:23 Interval history: Interval History: This is a 68-year-old female with a significant past medical history of cervical radiculopathy, hypertension, lupus, prediabetes, vitamin-D deficiency who presented to the emergency room with complaints of nausea/vomiting. Patient reports the following history of presenting illness. Patient states that she has had ongoing intermittent nausea and vomiting since December. She was recently seen on 01/29/2024 with similar complaints and was discharged with expectation to follow-up with GI he has not been able to get in with the GI doctor due to not feeling well. She states that she is able to drink water and some fluids but has not been able to eat food. Patient states that she has lost approximately 40 lb of weight over the past
--- NOTE | 2024-02-13 15:23 | PM.IMPN ---
Progress Note: A&P Assessment and Plan (1) Intractable nausea and vomiting: Code(s): R11.2 - Nausea with vomiting, unspecified Status: Acute Assessment and Plan: 02/09/24: Has had ongoing nausea and vomiting since December with a 40 lb weight loss. She was seen 1 and half weeks ago here at the hospital and was told to follow-up with GI however has not made that appointment GI consulted, however we have no coverage for interventions until Tuesday Continue IV fluids Continue nausea medication Tolerating clear liquid diet will advance to full 02/10/24: Still reporting bouts of nausea and vomiting Dietitian consult GI nurse practitioner is starting Reglan b.i.d., will monitor for improvement Continue IV fluids Continue nausea medication Will stick with full liquids today If no drastic improvement, I discussed with her the need for an EGD and possibly transfer out of our hospital to a hospital with GI coverage. 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 02/12/2024: NPO after midnight possible EGD 02/13/2024 02/13/24: NPO after midnight EGD in the morning GI following Continue Reglan (2) Protein-calorie malnutrition, moderate: Code(s): E44.0 - Moderate protein-calorie malnutrition Status: Acute Assessment and Plan: 02/10/24: Dietitian consult Patient has lost 40 lb over the last 2 months due to increased nausea and vomiting. She states she has not had any solid foods on a consistent basis for the last 2 months. She states she has a little hold down clears at times. GI consulted and recommended Reglan b.i.d. and to follow-up outpatient for EGD/colonoscopy 02/13/24: No change (3) Lupus: Code(s): M32.9 - Systemic lupus erythematosus, unspecified Status: Chronic Assessment and Plan: 02/09/24: Continue hydroxychloroquine and prednisone 02/10/24: No change to current treatment plan (4) Hypertension: Qualifiers: Hypertension type: essential hypertension Qualified Code(s): I10 - Essential (primary) hypertension Code(s): I10 - Essential (primary) hypertension Status: Chronic Assessment and Plan: 02/09/24: Blood pressures ranging 112/64 to 124/76 Continue triamterene/hydrochlorothiazide 02/10/24: No change to current treatment plan Time Spent With Patient Time with patient: 15 - 25 minutes Subjective Date/time seen: 02/13/24 15:23 Interval history: Interval History: This is a 68-year-old female with a significant past medical history of cervical radiculopathy, hypertension, lupus, prediabetes, vitamin-D deficiency who presented to the emergency room with complaints of nausea/vomiting. Patient reports the following history of presenting illness. Patient states that she has had ongoing intermittent nausea and vomiting since December. She was recently seen on 01/29/2024 with similar complaints and was discharged with expectation to follow-up with GI he has not been able to get in with the GI doctor due to not feeling well. She states that she is able to drink water and some fluids but has not been able to eat food. Patient states that she has lost approximately 40 lb of weight over the past 2 months since this started. Patient denies any fever, chills, nausea, vomiting, diarrhea, abdominal pain, chest pain, shortness a breath. Workup in the hospital includes chest x-ray which was clear. Abdomen/pelvis CTA showed no acute abnormality, no CT evidence for active GI bleed, small to moderate hiatal hernia, fatty infiltration of liver. Patient was started on Protonix, Pepcid, Zofran, IV fluids, potassium and magnesium replace
[2024-02-13 20:26] VITALS: BP 116/71; PULSE 87; RESP 16; TEMP 36.6; O2SAT 100
[2024-02-13] MEDS: AMITRIPTYLINE HCL 25 MG TABLET 50 MG PO (22:43)
[2024-02-13] MEDS: ZOLPIDEM TARTRATE (*CRX) 5 MG TABLET 10 MG PO (22:44)
[2024-02-14] VITALS (7 sets, daily range): BP systolic 100–142; BP diastolic 70–98; PULSE 88–95; RESP 16–25; TEMP 36.1–36.4; O2SAT 97–100
[2024-02-14 06:26] LABS: Hematocrit 37.8 % (37.0-47.0); Hemoglobin 13.2 g/dL (12.0-15.0); Mean Corpuscular HGB Conc 34.9 g/dl (32-36); Mean Corpuscular Hemoglobin 31.7 pg (26-34); Mean Corpuscular Volume 90.9 fl (80-100); Mean Platelet Volume 10.5 fl (7.4-10.4); Platelet Count Result 171 k/mm3 (150-375); Red Blood Count 4.16 M/mm3 (4.2-5.4); Red Cell Distribution Width 14.5 % (11.5-14.5); White Blood Count 5.2 K/mm3 (4.5-10.0)
[2024-02-14 06:48] LABS: Alanine Aminotransferase 131 U/L (6-35); Albumin Level 3.7 g/dL (3.5-5.1); Alkaline Phosphatase 115 U/L (38-126); Anion Gap 10 mmol/L (4-12); Aspartate Amino Transferase 192 U/L (14-36); Bilirubin,Total 1.1 mg/dL (0.2-1.3); Blood Urea Nitrogen 17 mg/dL (7-17); Calcium 9.6 mg/dL (8.4-10.2); Carbon Dioxide 27 mmol/L (22-30); Chloride 94 mmol/L (98-107); Estimated CRCL calculation 53 ml/min; Estimated Glomerular Filt Rate > 60; Glucose 85 mg/dL (65-110); Potassium 3.8 mmol/L (3.4-5.0); Sodium 131 mmol/L (137-145)
[2024-02-14 10:14] LABS: Glucose Point of Care 77 mg/dl (65-105)
--- NOTE | 2024-02-14 10:24 | P.PNIM_ITS ---
Progress Note: A&P Assessment and Plan (1) Intractable nausea and vomiting: Code(s): R11.2 - Nausea with vomiting, unspecified Status: Acute Assessment and Plan: 02/09/24: * Has had ongoing nausea and vomiting since December with a 40 lb weight loss. * She was seen 1 and half weeks ago here at the hospital and was told to follow- up with GI however has not made that appointment * GI consulted, however we have no coverage for interventions until Tuesday * Continue IV fluids * Continue nausea medication * Tolerating clear liquid diet will advance to full 02/10/24: * Still reporting bouts of nausea and vomiting * Dietitian consult * GI nurse practitioner is starting Reglan b.i.d., will monitor for improvement * Continue IV fluids * Continue nausea medication * Will stick with full liquids today * If no drastic improvement, I discussed with her the need for an EGD and possibly transfer out of our hospital to a hospital with GI coverage. 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 02/12/2024: * NPO after midnight * possible EGD 02/13/2024 02/13/24: * NPO after midnight * EGD in the morning * GI following * Continue Reglan 02/14/24: * EGD today at 2:30 a.m. * GI following * Continue Reglan * NPO for now (2) Transaminitis: Code(s): R74.01 - Elevation of levels of liver transaminase levels Status: Acute Assessment and Plan: 02/14/24: * AST 192, ALT 131 * Could be secondary to the Reglan * Will await GI input (3) Protein-calorie malnutrition, moderate: Code(s): E44.0 - Moderate protein-calorie malnutrition Status: Acute Assessment and Plan: 02/10/24: * Dietitian consult * Patient has lost 40 lb over the last 2 months due to increased nausea and vomiting. She states she has not had any solid foods on a consistent basis for the last 2 months. She states she has a little hold down clears at times. * GI consulted and recommended Reglan b.i.d. and to follow-up outpatient for EGD/colonoscopy 02/13/24: * No change (4) Lupus: Code(s): M32.9 - Systemic lupus erythematosus, unspecified Status: Chronic Assessment and Plan: 02/09/24: * Continue hydroxychloroquine and prednisone 02/10/24: * No change to current treatment plan (5) Hypertension: Qualifiers: Hypertension type: essential hypertension Qualified Code(s): I10 - Essential (primary) hypertension Code(s): I10 - Essential (primary) hypertension Status: Chronic Assessment and Plan: 02/09/24: * Blood pressures ranging 112/64 to 124/76 * Continue triamterene/hydrochlorothiazide 02/10/24: * No change to current treatment plan Time Spent With Patient Time with patient: Greater than 35 minutes Subjective Date/time seen: 02/14/24 10:24 Interval history: Interval History: This is a 68-year-old female with a significant past medical history of cervical radiculopathy, hypertension, lupus, prediabetes, vitamin-D deficiency who presented to the emergency room with complaints of nausea/vomiting. Patient reports the following history of presenting illness. Patient states that she has had ongoing intermittent nausea and vomiting since James
--- NOTE | 2024-02-14 10:24 | PM.IMPN ---
Progress Note: A&P Assessment and Plan (1) Intractable nausea and vomiting: Code(s): R11.2 - Nausea with vomiting, unspecified Status: Acute Assessment and Plan: 02/09/24: Has had ongoing nausea and vomiting since December with a 40 lb weight loss. She was seen 1 and half weeks ago here at the hospital and was told to follow-up with GI however has not made that appointment GI consulted, however we have no coverage for interventions until Tuesday Continue IV fluids Continue nausea medication Tolerating clear liquid diet will advance to full 02/10/24: Still reporting bouts of nausea and vomiting Dietitian consult GI nurse practitioner is starting Reglan b.i.d., will monitor for improvement Continue IV fluids Continue nausea medication Will stick with full liquids today If no drastic improvement, I discussed with her the need for an EGD and possibly transfer out of our hospital to a hospital with GI coverage. 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 02/12/2024: NPO after midnight possible EGD 02/13/2024 02/13/24: NPO after midnight EGD in the morning GI following Continue Reglan 02/14/24: EGD today at 2:30 a.m. GI following Continue Reglan NPO for now (2) Transaminitis: Code(s): R74.01 - Elevation of levels of liver transaminase levels Status: Acute Assessment and Plan: 02/14/24: AST 192, ALT 131 Could be secondary to the Reglan Will await GI input (3) Protein-calorie malnutrition, moderate: Code(s): E44.0 - Moderate protein-calorie malnutrition Status: Acute Assessment and Plan: 02/10/24: Dietitian consult Patient has lost 40 lb over the last 2 months due to increased nausea and vomiting. She states she has not had any solid foods on a consistent basis for the last 2 months. She states she has a little hold down clears at times. GI consulted and recommended Reglan b.i.d. and to follow-up outpatient for EGD/colonoscopy 02/13/24: No change (4) Lupus: Code(s): M32.9 - Systemic lupus erythematosus, unspecified Status: Chronic Assessment and Plan: 02/09/24: Continue hydroxychloroquine and prednisone 02/10/24: No change to current treatment plan (5) Hypertension: Qualifiers: Hypertension type: essential hypertension Qualified Code(s): I10 - Essential (primary) hypertension Code(s): I10 - Essential (primary) hypertension Status: Chronic Assessment and Plan: 02/09/24: Blood pressures ranging 112/64 to 124/76 Continue triamterene/hydrochlorothiazide 02/10/24: No change to current treatment plan Time Spent With Patient Time with patient: Greater than 35 minutes Subjective Date/time seen: 02/14/24 10:24 Interval history: Interval History: This is a 68-year-old female with a significant past medical history of cervical radiculopathy, hypertension, lupus, prediabetes, vitamin-D deficiency who presented to the emergency room with complaints of nausea/vomiting. Patient reports the following history of presenting illness. Patient states that she has had ongoing intermittent nausea and vomiting since December. She was recently seen on 01/29/2024 with similar complaints and was discharged with expectation to follow-up with GI he has not been able to get in with the GI doctor due to not feeling well. She states that she is able to drink water and some fluids but has not been able to eat food. Patient states that she has lost approximately 40 lb of weight over the past 2 months since this started. Patient denies any fever, chills, nausea, vomiting, diarrhea, abdominal pain, chest pain, sh
[2024-02-14] MEDS: LACTATED RINGERS 1,000 ML 150 ML IV CONT (10:31)
--- NOTE | 2024-02-14 10:43 | WPDANESEPPF ---
Anes - Initial Pre Proc Eval Procedure: Operation Date: 02/14/24 14:30 Proposed Procedures p Esophagogastroduodenoscopy - Gokul Hankins MD Date/Time: 02/14/24 10:43 Surgeon: Sharona Strong APRN Pre Op Diagnosis: Intractable nausea and vomiting Patient Data Age: 68 Gender: F Height: 1.65 m Weight: 77.27 kg Last Vital Signs Temp 36.1 C L 02/14/24 10:07 Pulse 88 02/14/24 10:07 Resp 17 02/14/24 10:07 BP 106/70 02/14/24 10:07 Pulse Ox 100 02/14/24 10:07 O2 Del Method Room Air 02/14/24 10:07 Allergies Allergy/AdvReac Type Severity Reaction Status Date / Time cephalexin Allergy Unknown Vomiting Verified 02/14/24 10:04 metronidazole Allergy Unknown Unknown Verified 02/14/24 10:04 Penicillins Allergy Unknown Unknown Verified 02/14/24 10:04 Sulfa (Sulfonamide Allergy Unknown Unknown Verified 02/14/24 10:04 Antibiotics) dicloxacillin AdvReac Intermediate SOB Verified 02/14/24 10:04 sulfamethoxazole AdvReac Intermediate SOB Verified 02/14/24 10:04 trimethoprim AdvReac Intermediate SOB Verified 02/14/24 10:04 Home Medications Medication Instructions Recorded Confirmed Type omeprazole 20 mg PO QAM GERD 10/30/20 02/14/24 History hydroxychloroquine 200 mg tablet 200 mg PO BID 04/21/21 02/14/24 History amitriptyline 25 mg tablet 50 mg PO HS #180 tabs 09/28/23 02/14/24 Rx triamterene 37.5 1 tablet PO QAM #90 tabs 10/16/23 02/14/24 Rx mg-hydrochlorothiazide 25 mg tablet hydrocodone 10 mg-acetaminophen 1 tablet PO Q6H PRN pain #120 tabs 12/01/23 02/14/24 Rx 325 mg tablet tizanidine 4 mg tablet 8 mg PO BID muscle spasticity 30 12/08/23 02/14/24 Rx days #360 tabs zolpidem 10 mg tablet 10 mg PO HS PRN insomnia #30 tabs 01/31/24 02/14/24 Rx prednisone 5 mg tablet 7.5 mg PO EVERY OTHER DAY 02/09/24 02/14/24 History prednisone 5 mg tablet 10 mg PO EVERY OTHER DAY 02/09/24 02/14/24 History Laboratory Tests 02/14/24 02/14/24 05:47 10:11 WBC 5.2 K/mm3 (4.5-10.0) RBC 4.16 L M/mm3 (4.2-5.4) Hgb 13.2 g/dL (12.0-15.0) Hct 37.8 % (37.0-47.0) MCV 90.9 fl (80-100) MCH 31.7 pg (26-34) MCHC 34.9 g/dl (32-36) RDW 14.5 % (11.5-14.5) Plt Count 171 k/mm3 (150-375) MPV 10.5 H fl (7.4-10.4) Sodium 131 L mmol/L (137-145) Potassium 3.8 mmol/L (3.4-5.0) Chloride 94 L mmol/L (98-107) Carbon Dioxide 27 mmol/L (22-30) Anion Gap 10 mmol/L (4-12) BUN 17 D mg/dL (7-17) Creatinine 0.90 mg/dL (0.7-1.0) Estim Creat Clear Calc 53 ml/min Estimated GFR > 60 (59 - ) Glucose 85 mg/dL (65-110) POC Capillary Glucose 77 mg/dl (65-105) Calcium 9.6 mg/dL (8.4-10.2) Total Bilirubin 1.1 mg/dL (0.2-1.3) AST 192 H U/L (14-36) ALT 131 H U/L (6-35) Alkaline Phosphatase 115 U/L (38-126) Total Protein 6.0 L g/dL (6.3-8.2) Albumin 3.7 g/dL (3.5-5.1) Patient hx anesthesia problems: none Family hx anesthesia problems: none Results Review: All pre-operative results and documents have been reviewed as part of the pre-operative evaluation. [facility] Past Medical History Medical History Cervical radiculopathy Current chronic use of systemic steroids Encounter for immunization Hypertension Lumbar spinal stenosis Lupus Panniculitis with secondary chronic pain Prediabetes Right anterior knee pain (~12/2018) Vitamin D deficiency Surgical History Surgical History History of bilateral knee replacement History of carpal tunnel release History of fusion of cervical spine (~2013) History of lumpectomy left breast History of rotator cuff surgery left side Family History Family History Fat
[2024-02-14] MEDS: METOCLOPRAMIDE HCL 10 MG TABLET PO ×3 (11:42→22:27)
[2024-02-14] MEDS: HYDROXYCHLOROQUINE SULFATE 200 MG TABLET PO ×2 (11:42→16:29)
[2024-02-14] MEDS: predniSONE 2.5 MG TABLET 7.5 MG PO (11:43)
[2024-02-14] MEDS: PANTOPRAZOLE 40 MG TABLET PO ×2 (11:43→16:29)
[2024-02-14] MEDS: LORATADINE/PSEUDOEPHEDRINE (*CRX) 10/240 MG TABLET ER 24 HR 1 TAB PO (11:43)
[2024-02-14] MEDS: ZOLPIDEM TARTRATE (*CRX) 5 MG TABLET 10 MG PO (22:27)
[2024-02-14] MEDS: AMITRIPTYLINE HCL 25 MG TABLET 50 MG PO (22:27)
[2024-02-15] VITALS (13 sets, daily range): BP systolic 93–152; BP diastolic 65–93; PULSE 88–111; RESP 16–20; TEMP 36.1–36.9; O2SAT 96–100
[2024-02-15] MEDS: METOCLOPRAMIDE HCL 10 MG TABLET PO ×4 (06:01→22:21)
[2024-02-15 06:12] LABS: Hematocrit 35.4 % (37.0-47.0); Mean Corpuscular HGB Conc 33.9 g/dl (32-36); Mean Corpuscular Hemoglobin 31.1 pg (26-34); Mean Corpuscular Volume 91.7 fl (80-100); Platelet Count Result 158 k/mm3 (150-375); Red Blood Count 3.86 M/mm3 (4.2-5.4); Red Cell Distribution Width 14.5 % (11.5-14.5); White Blood Count 6.1 K/mm3 (4.5-10.0)
[2024-02-15 06:43] LABS: Alanine Aminotransferase 81 U/L (6-35); Albumin Level 3.3 g/dL (3.5-5.1); Alkaline Phosphatase 98 U/L (38-126); Anion Gap 8 mmol/L (4-12); Aspartate Amino Transferase 58 U/L (14-36); Bilirubin,Total 0.7 mg/dL (0.2-1.3); Blood Urea Nitrogen 20 mg/dL (7-17); Carbon Dioxide 28 mmol/L (22-30); Chloride 96 mmol/L (98-107); Estimated CRCL calculation 53 ml/min; Estimated Glomerular Filt Rate > 60; Glucose 78 mg/dL (65-110); Potassium 3.4 mmol/L (3.4-5.0); Sodium 132 mmol/L (137-145)
[2024-02-15] MEDS: PANTOPRAZOLE 40 MG TABLET PO ×2 (09:01→16:27)
[2024-02-15] MEDS: HYDROXYCHLOROQUINE SULFATE 200 MG TABLET PO ×2 (09:01→16:27)
[2024-02-15] MEDS: LORATADINE/PSEUDOEPHEDRINE (*CRX) 10/240 MG TABLET ER 24 HR 1 TAB PO (09:01)
[2024-02-15] MEDS: TRIAMTERENE 37.5 MG/HCTZ 25 MG (MAXZIDE) TABLET 1 TAB PO (09:01)
[2024-02-15] MEDS: predniSONE 10 MG TABLET PO (09:01)
[2024-02-15] MEDS: SODIUM CHLORIDE 0.9% IV 1,000 ML 999 ML IV CONT (11:07)
--- NOTE | 2024-02-15 11:35 | WPDANESPN ---
Anes - Prog Note Post-Op Date/Time: 02/15/24 11:35 Cardiovascular status: normal Respiratory status: normal Airway patency: baseline Mental status: baseline Post-Op hydration status: normal Vital Signs: Last Vital Signs Temp 36.2 C L 02/15/24 07:40 Pulse 102 H 02/15/24 07:40 Resp 20 02/15/24 07:40 BP 97/69 L 02/15/24 09:30 Pulse Ox 98 02/15/24 11:26 O2 Del Method Room Air 02/15/24 11:26 Pain Score (VAS): 0 I/O: Intake & Output 02/14/24 02/15/24 02/15/24 23:59 07:59 15:59 Intake Total 240 175 236 Output Total 400 600 Balance -160 -425 236 Laboratory Tests 02/15/24 06:01 02/15/24 06:01 02/15/24 06:01 WBC 6.1 RBC 3.86 L Hgb 12.0 Hct 35.4 L MCV 91.7 MCH 31.1 MCHC 33.9 RDW 14.5 Plt Count 158 MPV 10.0 Sodium 132 L Potassium 3.4 Chloride 96 L Carbon Dioxide 28 Anion Gap 8 BUN 20 H Creatinine 0.90 Estim Creat Clear Calc 53 Estimated GFR > 60 Glucose 78 Calcium 9.0 Total Bilirubin 0.7 AST 58 H ALT 81 H Alkaline Phosphatase 98 Total Protein 6.0 L Albumin 3.3 L Post-procedural complaints: none Patient Feedback: Patient satisfied with anesthetic care.
--- NOTE | 2024-02-15 12:58 | WPDGIPROGNO ---
Progress Note: A&P Assessment and Plan (1) Intractable nausea and vomiting: Code(s): R11.2 - Nausea with vomiting, unspecified Status: Acute Assessment and Plan: overall better path report benign- reviewed with patient ? dysmotility, will order GES as outpatient no objections to discharge reglan prn (2) Weight loss: Code(s): R63.4 - Abnormal weight loss Status: Acute (3) Prediabetes: Code(s): R73.03 - Prediabetes Status: Acute (4) Hyponatremia: Code(s): E87.1 - Hypo-osmolality and hyponatremia Status: Acute Subjective Date/time seen: 02/15/24 12:58 Interval history: egd yesterday no major findings earlier this morning again with nausea but already feeling much better and having lunch she thinks that reglan is helping Review of Systems Review of Systems: All systems reviewed & are unremarkable except as noted in HPI and below Exam Const: General: comfortable and no acute distress HENMT: Face/Nose/Sinus: Normal nares present Eyes: General: appearance normal, both eyes and all related structures Neck: Neck: no JVD Resp: Auscultation: clear to auscultation bilaterally Cardio: Rate: regular rate Rhythm: regular rhythm GI: Inspection: non-distended GI Palp: Yes Soft to palpation Skin: General skin exam: normal color Neuro: General: gait normal Speech: normal speech Extrem: General: normal to inspection Psych: Mental Status: mental status grossly normal Objective Data Vital Signs Vital Signs: Vital Signs - 24 hr 02/14/24 21:53 02/14/24 20:00 02/15/24 05:11 Temperature 97.5 F L 97.2 F L Pulse Rate 95 96 Respiratory Rate 16 16 Blood Pressure 121/73 149/88 H Pulse Oximetry 97 99 Oxygen Delivery Room Air 02/15/24 07:40 02/15/24 09:20 02/15/24 09:25 Temperature 97.2 F L Pulse Rate 102 H Respiratory Rate 20 Blood Pressure 125/93 H 129/81 117/82 Pulse Oximetry 100 Oxygen Delivery 02/15/24 09:30 02/15/24 11:26 Temperature Pulse Rate Respiratory Rate Blood Pressure 97/69 L Pulse Oximetry 98 Oxygen Delivery Room Air Intake/Output Intake/Output: Intake & Output 08/04/24 02/13/24 02/14/24 02/15/24 23:59 23:59 23:59 23:59 Intake Total 1368 900 290 411 Output Total 1300 800 700 600 Balance 68 493 -410 189 Meds/Results Medications: Active Medications Generic Name Dose Route Start Last Admin Trade Name Freq PRN Reason Stop Dose Admin Hydrocodone Bitart/Acetaminophen 1 tab 02/09/24 09:52 02/09/24 16:28 Hydrocodone/Acetaminophen (*Crx) 10-325 Mg Tablet PO 1 tab Q6H PRN Administration pain Amitriptyline HCl 50 mg 02/09/24 21:00 02/14/24 22:27 Amitriptyline Hcl 25 Mg Tablet PO 50 mg HS SAM Administration Hydroxychloroquine Sulfate 200 mg 02/09/24 17:00 02/15/24 09:01 Hydroxychloroquine Sulfate 200 Mg Tablet PO 200 mg BID SAM Administration Loratadine/Pseudoephedrine Sulfate 1 tab 02/13/24 09:00 02/15/24 09:01 Loratadine/Pseudoephedrine (*Crx) 10/240 Mg Tablet Er 24 Hr PO 1 tab QAM SAM Administration Metoclopramide HCl 5 mg 02/10/24 08:35 02/13/24 08:45 Metoclopramide Hcl 5 Mg Tablet PO 5 mg BID PRN Administration Nausea And Vomiting Metoclopramide HCl 10 mg 02/13/24 11:30 02/15/24 11:48 Metoclopramide Hcl 10 Mg Tablet PO 10 mg ACHS SAM Administration Ondansetron HCl 4 mg 02/09/24 16:17 02/10/24 18:39 Ondansetron Inj 4 Mg/2 Ml Vial IV PUSH 4 mg Q4H PRN Administration Nausea And Vomiting Pantoprazole Sodium 40 mg 02/11/24 17:00 02/15/24 09:01 Pantoprazole 40 Mg Tablet PO 40 mg BID SAM Administration Prednisone 10 mg 02/11/24 09:00 02/15/24 09:01 Prednisone 10 Mg Tablet PO 10 mg Q48HR SAM Administration Prednisone 7.5 mg 02/10/24 09:00 02/14/24 11:43 Prednisone 2.5 Mg Tablet PO 7.5 mg Q48HR SAM Administration Prochlorperazine Edisylate 10 mg
--- NOTE | 2024-02-15 15:21 | P.PNIM_ITS ---
Progress Note: A&P Assessment and Plan (1) Intractable nausea and vomiting: Code(s): R11.2 - Nausea with vomiting, unspecified Status: Acute Assessment and Plan: 02/09/24: * Has had ongoing nausea and vomiting since December with a 40 lb weight loss. * She was seen 1 and half weeks ago here at the hospital and was told to follow- up with GI however has not made that appointment * GI consulted, however we have no coverage for interventions until Tuesday * Continue IV fluids * Continue nausea medication * Tolerating clear liquid diet will advance to full 02/10/24: * Still reporting bouts of nausea and vomiting * Dietitian consult * GI nurse practitioner is starting Reglan b.i.d., will monitor for improvement * Continue IV fluids * Continue nausea medication * Will stick with full liquids today * If no drastic improvement, I discussed with her the need for an EGD and possibly transfer out of our hospital to a hospital with GI coverage. 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 02/12/2024: * NPO after midnight * possible EGD 02/13/2024 02/13/24: * NPO after midnight * EGD in the morning * GI following * Continue Reglan 02/14/24: * EGD today at 2:30 a.m. * GI following * Continue Reglan * NPO for now 02/15/24: * Reported nausea this morning in which she received some Zofran through the IV * EGD showed gastritis, polyp with removal, hiatal hernia * Continue Protonix * Continue Reglan * Plan for her to follow-up with GI on an outpatient basis for a gastric emptying study to check for gastroparesis * Reported dizziness today and patient was given a 1 L normal saline bolus due to orthostatic hypotension * Will recheck orthostatic blood pressures Q shift * Potential discharge tomorrow morning (2) Transaminitis: Code(s): R74.01 - Elevation of levels of liver transaminase levels Status: Acute Assessment and Plan: 02/14/24: * AST 192, ALT 131 * Could be secondary to the Reglan * Will await GI input 02/15/24: * Liver enzymes are trending down * AST 58, ALT 81 * Continue to trend (3) Protein-calorie malnutrition, moderate: Code(s): E44.0 - Moderate protein-calorie malnutrition Status: Acute Assessment and Plan: 02/10/24: * Dietitian consult * Patient has lost 40 lb over the last 2 months due to increased nausea and vomiting. She states she has not had any solid foods on a consistent basis for the last 2 months. She states she has a little hold down clears at times. * GI consulted and recommended Reglan b.i.d. and to follow-up outpatient for EGD/colonoscopy 02/13/24: * No change (4) Lupus: Code(s): M32.9 - Systemic lupus erythematosus, unspecified Status: Chronic Assessment and Plan: 02/09/24: * Continue hydroxychloroquine and prednisone 02/10/24: * No change to current treatment plan (5) Hypertension: Qualifiers: Hypertension type: essential hypertension Qualified Code(s): I10 - Essential (primary) hypertension Code(s): I10 - Essential (primary) hypertension Status: Chronic Assessment and Plan: 02/09/24: * Blood pressures ranging 112/64 to 124/76 * Continue triamterene/h
--- NOTE | 2024-02-15 15:21 | PM.IMPN ---
Progress Note: A&P Assessment and Plan (1) Intractable nausea and vomiting: Code(s): R11.2 - Nausea with vomiting, unspecified Status: Acute Assessment and Plan: 02/09/24: Has had ongoing nausea and vomiting since December with a 40 lb weight loss. She was seen 1 and half weeks ago here at the hospital and was told to follow-up with GI however has not made that appointment GI consulted, however we have no coverage for interventions until Tuesday Continue IV fluids Continue nausea medication Tolerating clear liquid diet will advance to full 02/10/24: Still reporting bouts of nausea and vomiting Dietitian consult GI nurse practitioner is starting Reglan b.i.d., will monitor for improvement Continue IV fluids Continue nausea medication Will stick with full liquids today If no drastic improvement, I discussed with her the need for an EGD and possibly transfer out of our hospital to a hospital with GI coverage. 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 02/12/2024: NPO after midnight possible EGD 02/13/2024 02/13/24: NPO after midnight EGD in the morning GI following Continue Reglan 02/14/24: EGD today at 2:30 a.m. GI following Continue Reglan NPO for now 02/15/24: Reported nausea this morning in which she received some Zofran through the IV EGD showed gastritis, polyp with removal, hiatal hernia Continue Protonix Continue Reglan Plan for her to follow-up with GI on an outpatient basis for a gastric emptying study to check for gastroparesis Reported dizziness today and patient was given a 1 L normal saline bolus due to orthostatic hypotension Will recheck orthostatic blood pressures Q shift Potential discharge tomorrow morning (2) Transaminitis: Code(s): R74.01 - Elevation of levels of liver transaminase levels Status: Acute Assessment and Plan: 02/14/24: AST 192, ALT 131 Could be secondary to the Reglan Will await GI input 02/15/24: Liver enzymes are trending down AST 58, ALT 81 Continue to trend (3) Protein-calorie malnutrition, moderate: Code(s): E44.0 - Moderate protein-calorie malnutrition Status: Acute Assessment and Plan: 02/10/24: Dietitian consult Patient has lost 40 lb over the last 2 months due to increased nausea and vomiting. She states she has not had any solid foods on a consistent basis for the last 2 months. She states she has a little hold down clears at times. GI consulted and recommended Reglan b.i.d. and to follow-up outpatient for EGD/colonoscopy 02/13/24: No change (4) Lupus: Code(s): M32.9 - Systemic lupus erythematosus, unspecified Status: Chronic Assessment and Plan: 02/09/24: Continue hydroxychloroquine and prednisone 02/10/24: No change to current treatment plan (5) Hypertension: Qualifiers: Hypertension type: essential hypertension Qualified Code(s): I10 - Essential (primary) hypertension Code(s): I10 - Essential (primary) hypertension Status: Chronic Assessment and Plan: 02/09/24: Blood pressures ranging 112/64 to 124/76 Continue triamterene/hydrochlorothiazide 02/10/24: No change to current treatment plan Time Spent With Patient Time with patient: 25 - 35 minutes Subjective Date/time seen: 02/15/24 15:21 Interval history: Interval History: This is a 68-year-old female with a significant past medical history of cervical radiculopathy, hypertension, lupus, prediabetes, vitamin-D deficiency who presented to the emergency room with complaints of nausea/vomiting. Patient reports the following history of presenting illness. [place]
[2024-02-15] MEDS: AMITRIPTYLINE HCL 25 MG TABLET 50 MG PO (22:20)
[2024-02-15] MEDS: ZOLPIDEM TARTRATE (*CRX) 5 MG TABLET 10 MG PO (22:20)
[2024-02-16 06:00] VITALS: BP 119/80; PULSE 82; RESP 18; TEMP 35.9; O2SAT 96
[2024-02-16] MEDS: METOCLOPRAMIDE HCL 10 MG TABLET PO ×3 (06:04→16:53)
[2024-02-16 06:31] LABS: Hematocrit 37.3 % (37.0-47.0); Hemoglobin 12.6 g/dL (12.0-15.0); Mean Corpuscular HGB Conc 33.8 g/dl (32-36); Mean Corpuscular Volume 91.6 fl (80-100); Mean Platelet Volume 10.5 fl (7.4-10.4); Platelet Count Result 179 k/mm3 (150-375); Red Blood Count 4.07 M/mm3 (4.2-5.4); Red Cell Distribution Width 14.6 % (11.5-14.5)
[2024-02-16 06:47] LABS: Alanine Aminotransferase 65 U/L (6-35); Albumin Level 3.5 g/dL (3.5-5.1); Alkaline Phosphatase 87 U/L (38-126); Anion Gap 10 mmol/L (4-12); Aspartate Amino Transferase 36 U/L (14-36); Bilirubin,Total 0.7 mg/dL (0.2-1.3); Blood Urea Nitrogen 23 mg/dL (7-17); Calcium 9.2 mg/dL (8.4-10.2); Carbon Dioxide 26 mmol/L (22-30); Chloride 97 mmol/L (98-107); Estimated CRCL calculation 44 ml/min; Estimated Glomerular Filt Rate 49; Glucose 75 mg/dL (65-110); Potassium 3.5 mmol/L (3.4-5.0); Sodium 133 mmol/L (137-145)
[2024-02-16] MEDS: HYDROXYCHLOROQUINE SULFATE 200 MG TABLET PO ×2 (09:58→16:53)
[2024-02-16] MEDS: PANTOPRAZOLE 40 MG TABLET PO ×2 (09:58→16:53)
[2024-02-16] MEDS: LORATADINE/PSEUDOEPHEDRINE (*CRX) 10/240 MG TABLET ER 24 HR 1 TAB PO (09:59)
[2024-02-16] MEDS: predniSONE 2.5 MG TABLET 7.5 MG PO (09:59)
[2024-02-16] MEDS: TRIAMTERENE 37.5 MG/HCTZ 25 MG (MAXZIDE) TABLET 1 TAB PO (09:59)
--- NOTE | 2024-02-16 10:20 | PM.DS ---
DS: Admitting Diagnosis Discharge Date 02/16/24 Admitting Diagnosis Intractable nausea vomiting Acute hypokalemia Lupus Hypertension hypomagnesemia DS: Discharge Diagnosis Discharge Diagnosis (1) Intractable nausea and vomiting: Code(s): R11.2 - Nausea with vomiting, unspecified Status: Acute (2) Transaminitis: Code(s): R74.01 - Elevation of levels of liver transaminase levels Status: Acute (3) Protein-calorie malnutrition, moderate: Code(s): E44.0 - Moderate protein-calorie malnutrition Status: Acute (4) Lupus: Code(s): M32.9 - Systemic lupus erythematosus, unspecified Status: Chronic (5) Hypertension: Qualifiers: Hypertension type: essential hypertension Qualified Code(s): I10 - Essential (primary) hypertension Code(s): I10 - Essential (primary) hypertension Status: Chronic DS: Summary Hospital Course Reason for hospitalization: Intractable nausea vomiting Acute hypokalemia Lupus Hypertension hypomagnesemia Hospital Course: This is a 68-year-old female with a significant past medical history of cervical radiculopathy, hypertension, lupus, prediabetes, vitamin-D deficiency who presented to the emergency room with complaints of nausea/vomiting. Patient reports the following history of presenting illness. Patient states that she has had ongoing intermittent nausea and vomiting since December. She was recently seen on 01/29/2024 with similar complaints and was discharged with expectation to follow-up with GI he has not been able to get in with the GI doctor due to not feeling well. She states that she is able to drink water and some fluids but has not been able to eat food. Patient states that she has lost approximately 40 lb of weight over the past 2 months since this started. Patient denies any fever, chills, nausea, vomiting, diarrhea, abdominal pain, chest pain, shortness a breath. Workup in the hospital includes chest x-ray which was clear. Abdomen/pelvis CTA showed no acute abnormality, no CT evidence for active GI bleed, small to moderate hiatal hernia, fatty infiltration of liver. Patient was started on Protonix, Pepcid, Zofran, IV fluids, potassium and magnesium replacement. On 02/14/2024 patient had an EGD which showed a hiatal hernia, gastritis, and a gastric polyp which was excised and sent for cytology. And she was started on Reglan prior to the EGD which has been helping with her nausea and vomiting. She is tolerating food and fluid with the use of Reglan. Labs today are stable. Vital signs are stable, she is on room air, she is afebrile. She is stable for discharge at this time. She will need to follow up with GI in 2 weeks for gastric emptying study to check for gastroparesis. Final diagnosis: Gastritis, gastroparesis hypokalemia, hypomagnesemia Status at Discharge Cognitive/behavioral status at discharge: Alert oriented x4 Functional status at discharge: independent ambulation Overall status at discharge: patient is progressing back to baseline Time Spent with Patient Time attestation: Total time spent providing and/or coordinating discharge services: Time spent: Greater than 30 minutes Exam Narrative: General: In no acute distress, pale Cardiac: Normal S1 and S2. No murmur, gallops or friction rubs, peripheral pulses intact. Respiratory: Lungs clear to auscultation, no adventitious lung sounds, currently on room air Gastrointestinal: soft, non-distended, non-tender, normoactive bowel sounds. Neuro: Alert and oriented x4 DS: Data Data Completed and Pending Completed studies during hospitalization: Chest x-ray Abdomen/pelvis CTA Pending studies at discharge: 02/14/24 11:02 Surgical [PTH] Routine Labs on day of discharge: Labs from last 24 hours 02/16/24 05:49 WBC 6.0 RBC 4.07 L Hgb 12.6 Hct 37.3 MCV 91.6 MCH 31.0 MCHC 33.8 RDW 14.6 H Plt Count 179 MPV 10.5 H Sodium 133 L Pot
--- NOTE | 2024-02-16 11:16 | PCNFU ---
Nutrition Follow-Up Complete: Severe protein calorie malnutrition related to acute nausea and vomiting as evidenced by weight loss 18%/3 months; intakes <50% needs >1 week; moderate muscle wasting and fat loss to buccal fat pads, temporalis Goal:Diet advancement Improve intake Pt current nutrition is Regular, Ensure compact BID. Nutrition recommendation: continue with current plan of care Last recorded weight is 77.27 kg. Bowel Motility: No BM recorded at this time Labs Reviewed: NA:133, GFR:49, BUN:23, Cr:1.1 Meds Noted: reglan, zofran, protonix, prednison Skin: WNL Additional Notes: Pt continues on a regular diet, intake much improved and pt is tolerating all foods at this time, pleasant and cheerful to be eating. No questions or concerns. Agree with diet orders. Monitoring diet advancement, GI output, weights, labs, intakes, plan of care Follow up in 7 days
[2024-02-16 14:00] VITALS: BP 105/74; PULSE 98; RESP 16; TEMP 36.1; O2SAT 99
--- NOTE | 2024-02-16 18:46 | PC.NURSE ---
On 02/16/24, the ROOM SERVICE WAITER/WAITRESS, Lily Hopkins, provided care and completed [employer] documentation on this patient. I have reviewed the ROOM SERVICE WAITER/WAITRESS's documentation and agree with the findings.
== END 2024-02-16 17:20 | disposition home or self-care (01) | DRG 392 ==
LOC: ANHED 02-09 03:37 → ANH3MEDSUR 02-09 04:32
PROVIDERS: Internal Medicine Gastroenterology; Nurse Practitioner Family; Admitting Provider Internal Medicine; Emergency Provider Student in an Organized Health Care Education/Training Program; PCP Family Medicine; Visit Provider Nurse Practitioner Acute Care
PROC: 0DJ08ZZ Inspection of Upper Intestinal Tract, Via Natural or Artificial Opening Endoscopic (ICD-10-PCS; CPT 43235; principal; 2024-02-14 14:30)
DX: K29.70 Gastritis, unspecified, without bleeding (principal); E87.1 Hypo-osmolality and hyponatremia; E44.0 Moderate protein-calorie malnutrition; K31.84 Gastroparesis; R11.2 Nausea with vomiting, unspecified; I95.1 Orthostatic hypotension; I10 Essential (primary) hypertension; I35.0 Nonrheumatic aortic (valve) stenosis; E55.9 Vitamin D deficiency, unspecified; E87.6 Hypokalemia; E83.42 Hypomagnesemia; K31.7 Polyp of stomach and duodenum; K44.9 Diaphragmatic hernia without obstruction or gangrene; M32.9 Systemic lupus erythematosus, unspecified; M54.12 Radiculopathy, cervical region; M48.061 Spinal stenosis, lumbar region without neurogenic claudication; R74.01 Elevation of levels of liver transaminase levels; R63.4 Abnormal weight loss; R73.03 Prediabetes; Z96.653 Presence of artificial knee joint, bilateral; Z20.822 Contact with and (suspected) exposure to COVID-19; Z79.52 Long term (current) use of systemic steroids; Z98.1 Arthrodesis status; Z80.0 Family history of malignant neoplasm of digestive organs; Z68.28 Body mass index [BMI] 28.0-28.9, adult
CPT/HCPCS: 36415; 71045; 74174; 80053; 81001; 82948; 83605; 83690; 83735; 84484; 85025; 85027; 85610; 85730; 86850; 86900; 86901; 87637; 88305; 93005; 96365; 96366; 96367; 96375; 96376; 99285; A9270; G0378; J0780; J1630; J2405; J2470; J2704; J3475; J3480; J7030; J7040; J7042; J7050; J7120; J7512; Q9967

== ENCOUNTER 2024-03-13 07:44 | Outpatient (CLI) | payer MEDICARE, OTHER, SELFPAY ==
--- NOTE | ~2024-03-13 | NM_ITS ---
EXAM: NM gastric emptying study DATE: 03/13/2024 12:43 INDICATION: Moderate protein calorie malnutrition TECHNIQUE: A gastric emptying study was performed using the methodology of Sharla GUTIERREZ, et al. J Nucl Med 2007; 48:568-572. The patient was given a meal consisting of 2 scrambled eggs labeled with 1 mCi Tc-99m sulfur colloid, 2 slices of toast, two packages of jam, and approximately 120 mL of water. Si multaneous anterior and posterior 1-min images of the abdomen were obtained with the patient supine a t multiple time points over a total period of 4 hours. The geometric mean of anterior and posterior v iews was determined, and the percentage retention was calculated for each time point. COMPARISON: None. FINDINGS: Gastric retention of the radiotracer-labeled meal was 85%, 8%, and 2% at the 1-hour, 2-hour, and 4-ho ur time points, respectively. With this technique, apparent rapid gastric emptying is suggested by <3 0% gastric retention at 1 hour. Delayed gastric emptying is defined by gastric retention of >90% at 1 hour, >60% retention at 2 hours, or >10% retention at 4 hours. IMPRESSION: 1. Normal gastric emptying. Reviewed, dictated and finalized at location A. IMPRESSION: 1. Normal gastric emptying.
== END 2024-03-13 07:45 | disposition home or self-care (01) ==
PROVIDERS: PCP Family Medicine; Visit Provider Internal Medicine Gastroenterology
DX: E44.0 Moderate protein-calorie malnutrition (principal); Z68.33 Body mass index [BMI] 33.0-33.9, adult
CPT/HCPCS: 78264; A9541